=== PATIENT | male | born 1945 | race Caucasian/White ===

== ENCOUNTER 2020-02-03 10:25 | Outpatient (REF) | payer OTHER, SELFPAY ==
[2020-02-03 12:03] LABS: INTERNATIONAL NORM RATIO 2.4 (0.9-1.1); Prothrombin Time 28.9 SEC (10.8-13.0)
== END 2020-02-03 10:26 | disposition home or self-care (01) ==
LOC: HO.HMGCLR 10:25
PROVIDERS: PCP Internal Medicine; Visit Provider Internal Medicine Hematology
DX: Z95.811 Presence of heart assist device (principal)
CPT/HCPCS: 36415; 85610

== ENCOUNTER 2020-02-17 10:02 | Outpatient (REF) | payer OTHER, SELFPAY ==
[2020-02-17 11:31] LABS: INTERNATIONAL NORM RATIO 2.5 (0.9-1.1); Prothrombin Time 30.3 SEC (10.8-13.0)
== END 2020-02-17 10:03 | disposition home or self-care (01) ==
LOC: HO.HMGCLDS 10:02
PROVIDERS: PCP Internal Medicine; Visit Provider Internal Medicine Hematology
DX: Z95.811 Presence of heart assist device (principal)
CPT/HCPCS: 36415; 85610

== ENCOUNTER 2020-03-02 08:34 | Outpatient (REF) | payer OTHER, SELFPAY ==
[2020-03-02 11:15] LABS: INTERNATIONAL NORM RATIO 2.7 (0.9-1.1); Prothrombin Time 31.8 SEC (10.8-13.0)
== END 2020-03-02 08:35 | disposition home or self-care (01) ==
LOC: HO.HMGCLR 08:34
PROVIDERS: PCP Internal Medicine; Visit Provider Internal Medicine Hematology
DX: Z95.811 Presence of heart assist device (principal)
CPT/HCPCS: 36415; 85610

== ENCOUNTER 2020-03-16 09:15 | Outpatient (REF) | payer OTHER, SELFPAY ==
[2020-03-16 11:40] LABS: INTERNATIONAL NORM RATIO 2.1 (0.9-1.1); Prothrombin Time 25.5 SEC (10.8-13.0)
== END 2020-03-16 09:16 | disposition home or self-care (01) ==
LOC: HO.HMGCLNP 09:15
PROVIDERS: PCP Internal Medicine; Visit Provider Internal Medicine Hematology
DX: Z95.811 Presence of heart assist device (principal)
CPT/HCPCS: 36415; 85610

== ENCOUNTER 2020-03-30 09:58 | Outpatient (REF) | payer OTHER, SELFPAY ==
[2020-03-30 11:42] LABS: INTERNATIONAL NORM RATIO 2.8 (0.9-1.1); Prothrombin Time 33.1 SEC (10.8-13.0)
== END 2020-03-30 09:59 | disposition home or self-care (01) ==
LOC: HO.HMGCLR 09:58
PROVIDERS: PCP Internal Medicine; Visit Provider Internal Medicine Hematology
DX: Z95.811 Presence of heart assist device (principal)
CPT/HCPCS: 36415; 85610

== ENCOUNTER 2020-04-13 10:54 | Outpatient (REF) | payer OTHER, SELFPAY ==
[2020-04-13 14:25] LABS: INTERNATIONAL NORM RATIO 2.6 (0.9-1.1); Prothrombin Time 30.7 SEC (10.8-13.0)
== END 2020-04-13 10:55 | disposition home or self-care (01) ==
LOC: HO.HMGCLR 10:54
PROVIDERS: PCP Internal Medicine; Visit Provider Internal Medicine Hematology
DX: Z95.811 Presence of heart assist device (principal); Z51.81 Encounter for therapeutic drug level monitoring
CPT/HCPCS: 36415; 85610

== ENCOUNTER 2020-04-27 10:30 | Outpatient (REF) | payer OTHER, SELFPAY ==
[2020-04-27 11:40] LABS: INTERNATIONAL NORM RATIO 3.2 (0.9-1.1); Prothrombin Time 38.8 SEC (10.8-13.0)
== END 2020-04-27 10:31 | disposition home or self-care (01) ==
LOC: HO.HMGCLR 10:30
PROVIDERS: PCP Internal Medicine; Visit Provider Internal Medicine Hematology
DX: Z95.811 Presence of heart assist device (principal)
CPT/HCPCS: 36415; 85610

== ENCOUNTER 2020-05-11 11:10 | Outpatient (REF) | payer OTHER, SELFPAY ==
[2020-05-11 14:16] LABS: INTERNATIONAL NORM RATIO 3.2 (0.9-1.1); Prothrombin Time 37.9 SEC (10.8-13.0)
== END 2020-05-11 11:11 | disposition home or self-care (01) ==
LOC: HO.HMGCLR 11:10
PROVIDERS: PCP Internal Medicine; Visit Provider Internal Medicine Hematology
DX: Z95.811 Presence of heart assist device (principal)
CPT/HCPCS: 36415; 85610

== ENCOUNTER 2020-05-18 11:37 | Outpatient (REF) | payer OTHER, SELFPAY ==
[2020-05-18 14:14] LABS: INTERNATIONAL NORM RATIO 2.7 (0.9-1.1); Prothrombin Time 32.4 SEC (10.8-13.0)
== END 2020-05-18 11:38 | disposition home or self-care (01) ==
LOC: HO.HMGCLR 11:37
PROVIDERS: PCP Internal Medicine; Visit Provider Internal Medicine Hematology
DX: Z95.811 Presence of heart assist device (principal); Z79.01 Long term (current) use of anticoagulants
CPT/HCPCS: 36415; 85610

== ENCOUNTER 2020-05-25 10:48 | Outpatient (REF) | payer OTHER, SELFPAY ==
[2020-05-25 14:12] LABS: INTERNATIONAL NORM RATIO 2.5 (0.9-1.1); Prothrombin Time 29.5 SEC (10.8-13.0)
== END 2020-05-25 10:49 | disposition home or self-care (01) ==
LOC: HO.HMGCLR 10:48
PROVIDERS: PCP Internal Medicine; Visit Provider Internal Medicine Hematology
DX: Z95.811 Presence of heart assist device (principal)
CPT/HCPCS: 36415; 85610

== ENCOUNTER 2020-06-01 11:30 | Outpatient (REF) | payer OTHER, SELFPAY ==
[2020-06-01 14:35] LABS: INTERNATIONAL NORM RATIO 2.4 (0.9-1.1); Prothrombin Time 29.2 SEC (10.8-13.0)
== END 2020-06-01 11:31 | disposition home or self-care (01) ==
LOC: HO.HMGCLR 11:30
PROVIDERS: PCP Internal Medicine; Visit Provider Internal Medicine Hematology
DX: Z95.811 Presence of heart assist device (principal); Z79.01 Long term (current) use of anticoagulants
CPT/HCPCS: 36415; 85610

== ENCOUNTER 2020-06-15 10:47 | Outpatient (REF) | payer OTHER, SELFPAY ==
[2020-06-15 13:53] LABS: Hemoglobin 18.4 g/dl (14.0-18.0); Mean Corpuscular HGB Conc 32.6 g/dl (31.0-36.0); Mean Corpuscular Volume 95.1 fL (80-98); Mean Platelet Volume 10.7 fL (9.4-12.4); Platelet Count 160 X10*3/uL (160-400); Red Blood Count 5.94 X10*6/uL (4.60-5.80); Red Cell Distribution Width 14.6 % (11.0-16.0); White Blood Count 6.9 X10*3/uL (4.8-10.8)
[2020-06-15 13:58] LABS: Hematocrit 56.5 % (42-52)
[2020-06-15 14:04] LABS: INTERNATIONAL NORM RATIO 2.8 (0.9-1.1); Prothrombin Time 34.2 SEC (10.8-13.0)
[2020-06-15 14:11] LABS: Alanine Aminotransferase 33 U/L (0-40); Albumin Level 4.4 g/dL (3.5-5.0); Alkaline Phosphatase 93 U/L (39-117); Anion Gap 16 (12-20); Aspartate Amino Transferase 29 U/L (5-37); Bilirubin Direct 0.5 mg/dL (0.0-0.5); Bilirubin Total 1.4 mg/dL (0.0-1.0); Blood Urea Nitrogen 25 mg/dL (9-16); Calcium 9.2 mg/dL (8.4-10.2); Carbon Dioxide 25 mmol/L (22-29); Chloride 103 mmol/L (96-108); Cholesterol 198 mg/dL; Estimated Glomerular Filt Rate 46; Glucose Fasting 101 mg/dL (60-99); HDL Cholesterol 31 mg/dL; LDL Cholesterol Calculated 124 mg/dl; Lactate Dehydrogenase 210 U/L (118-273); Sodium 140 mmol/L (135-145); Total Protein 7.4 g/dL (6.5-8.0); Triglycerides 218 mg/dL
[2020-06-15 14:14] LABS: B Type Natriuretic Peptide 284 pg/mL (<100)
[2020-06-15 14:33] LABS: Free T4 (Free Thyroxine) 1.24 ng/dL (0.71-1.85); Thyroid Stimulating Hormone 1.33 uIU/mL (0.32-4.0)
== END 2020-06-15 10:48 | disposition home or self-care (01) ==
LOC: HO.HMGCLR 10:47
PROVIDERS: Absent Provider Nurse Practitioner Acute Care; PCP Internal Medicine; Visit Provider Internal Medicine Hematology
DX: I25.10 Atherosclerotic heart disease of native coronary artery without angina pectoris (principal); Z95.811 Presence of heart assist device
CPT/HCPCS: 36415; 80048; 80061; 80076; 83615; 83880; 84439; 84443; 85027; 85610

== ENCOUNTER 2020-06-29 09:10 | Outpatient (REF) | payer OTHER, SELFPAY ==
[2020-06-29 11:37] LABS: Prothrombin Time 36.4 SEC (10.8-13.0)
== END 2020-06-29 09:11 | disposition home or self-care (01) ==
LOC: HO.HMGCLR 09:10
PROVIDERS: Visit Provider Internal Medicine Hematology
DX: Z95.811 Presence of heart assist device (principal)
CPT/HCPCS: 36415; 85610

== ENCOUNTER 2020-07-13 11:45 | Outpatient (REF) | payer OTHER, SELFPAY ==
[2020-07-13 14:46] LABS: INTERNATIONAL NORM RATIO 2.7 (0.9-1.1); Prothrombin Time 31.9 SEC (10.8-13.0)
== END 2020-07-13 11:46 | disposition home or self-care (01) ==
LOC: HO.HMGCLR 11:45
PROVIDERS: PCP Internal Medicine; Visit Provider Internal Medicine Hematology
DX: Z95.811 Presence of heart assist device (principal)
CPT/HCPCS: 36415; 85610

== ENCOUNTER 2020-08-03 11:00 | Outpatient (REF) | payer OTHER, SELFPAY ==
[2020-08-03 14:03] LABS: INTERNATIONAL NORM RATIO 3.2 (0.9-1.1); Prothrombin Time 38.5 SEC (10.8-13.0)
== END 2020-08-03 11:01 | disposition home or self-care (01) ==
LOC: HO.HMGCLR 11:00
PROVIDERS: PCP Internal Medicine; Visit Provider Internal Medicine Hematology
DX: Z95.811 Presence of heart assist device (principal); Z79.01 Long term (current) use of anticoagulants
CPT/HCPCS: 36415; 85610

== ENCOUNTER 2020-08-10 10:23 | Outpatient (REF) | payer OTHER, SELFPAY ==
[2020-08-10 11:45] LABS: INTERNATIONAL NORM RATIO 1.9 (0.9-1.1); Prothrombin Time 22.4 SEC (10.8-13.0)
== END 2020-08-10 10:24 | disposition home or self-care (01) ==
LOC: HO.HMGCLR 10:23
PROVIDERS: PCP Internal Medicine; Visit Provider Internal Medicine Hematology
DX: Z95.811 Presence of heart assist device (principal)
CPT/HCPCS: 36415; 85610

== ENCOUNTER 2020-08-24 11:49 | Outpatient (REF) | payer OTHER, SELFPAY ==
[2020-08-24 14:05] LABS: INTERNATIONAL NORM RATIO 1.7 (0.9-1.1); Prothrombin Time 20.7 SEC (10.8-13.0)
== END 2020-08-24 11:50 | disposition home or self-care (01) ==
LOC: HO.HMGCLR 11:49
PROVIDERS: PCP Internal Medicine; Visit Provider Internal Medicine Hematology
DX: Z95.811 Presence of heart assist device (principal)
CPT/HCPCS: 36415; 85610

== ENCOUNTER 2020-08-27 11:10 | Outpatient (REF) | payer OTHER, SELFPAY ==
[2020-08-27 14:10] LABS: Prothrombin Time 23.7 SEC (10.8-13.0)
== END 2020-08-27 11:11 | disposition home or self-care (01) ==
LOC: HO.HMGCLR 11:10
PROVIDERS: PCP Internal Medicine; Visit Provider Internal Medicine Hematology
DX: Z95.811 Presence of heart assist device (principal)
CPT/HCPCS: 36415; 85610

== ENCOUNTER 2020-09-01 13:44 | Outpatient (REF) | payer OTHER, SELFPAY ==
[2020-09-01 16:58] LABS: INTERNATIONAL NORM RATIO 2.1 (0.9-1.1); Prothrombin Time 25.3 SEC (10.8-13.0)
== END 2020-09-01 13:45 | disposition home or self-care (01) ==
LOC: HO.HMGCLR 13:44
PROVIDERS: PCP Internal Medicine; Visit Provider Internal Medicine Hematology
DX: Z95.811 Presence of heart assist device (principal)
CPT/HCPCS: 36415; 85610

== ENCOUNTER 2020-09-08 11:22 | Outpatient (REF) | payer OTHER, SELFPAY ==
[2020-09-08 14:05] LABS: INTERNATIONAL NORM RATIO 1.4 (0.9-1.1); Prothrombin Time 16.2 SEC (10.8-13.0)
== END 2020-09-08 11:23 | disposition home or self-care (01) ==
LOC: HO.HMGCLR 11:22
PROVIDERS: PCP Internal Medicine; Visit Provider Internal Medicine Hematology
DX: Z95.811 Presence of heart assist device (principal)
CPT/HCPCS: 36415; 85610

== ENCOUNTER 2020-09-14 10:21 | Outpatient (REF) | payer OTHER, SELFPAY ==
[2020-09-14 11:46] LABS: INTERNATIONAL NORM RATIO 2.1 (0.9-1.1); Prothrombin Time 24.6 SEC (10.8-13.0)
== END 2020-09-14 10:22 | disposition home or self-care (01) ==
LOC: HO.HMGCLR 10:21
PROVIDERS: PCP Internal Medicine; Visit Provider Internal Medicine Hematology
DX: Z95.811 Presence of heart assist device (principal)
CPT/HCPCS: 36415; 85610

== ENCOUNTER 2020-09-21 10:12 | Outpatient (REF) | payer OTHER, SELFPAY ==
[2020-09-21 11:35] LABS: INTERNATIONAL NORM RATIO 2.2 (0.9-1.1); Prothrombin Time 25.9 SEC (10.8-13.0)
== END 2020-09-21 10:13 | disposition home or self-care (01) ==
LOC: HO.HMGCLR 10:12
PROVIDERS: Visit Provider Internal Medicine Hematology
DX: Z95.811 Presence of heart assist device (principal)
CPT/HCPCS: 36415; 85610

== ENCOUNTER 2020-09-29 11:15 | Outpatient (REF) | payer OTHER, SELFPAY ==
[2020-09-29 14:21] LABS: INTERNATIONAL NORM RATIO 1.7 (0.9-1.1); Prothrombin Time 20.8 SEC (10.8-13.0)
== END 2020-09-29 11:16 | disposition home or self-care (01) ==
LOC: HO.HMGCLR 11:15
PROVIDERS: PCP Internal Medicine; Visit Provider Internal Medicine Hematology
DX: Z95.811 Presence of heart assist device (principal)
CPT/HCPCS: 36415; 85610

== ENCOUNTER 2020-10-05 10:07 | Outpatient (REF) | payer OTHER, SELFPAY ==
[2020-10-05 11:55] LABS: B Type Natriuretic Peptide 244 pg/mL (<100)
[2020-10-05 12:05] LABS: INTERNATIONAL NORM RATIO 2.3 (0.9-1.1)
[2020-10-05 12:17] LABS: TSH reflex Free T4 0.86 uIU/mL (0.32-4.0)
[2020-10-05 12:22] LABS: Alanine Aminotransferase 17 U/L (0-40); Albumin Level 4.3 g/dL (3.5-5.0); Alkaline Phosphatase 96 U/L (39-117); Anion Gap 15 (12-20); Aspartate Amino Transferase 24 U/L (5-37); Bilirubin Direct 0.4 mg/dL (0.0-0.5); Bilirubin Total 1.3 mg/dL (0.0-1.0); Blood Urea Nitrogen 28 mg/dL (9-16); Calcium 9.3 mg/dL (8.4-10.2); Carbon Dioxide 20 mmol/L (22-29); Chloride 109 mmol/L (96-108); Estimated Glomerular Filt Rate 45; Glucose Random 105 mg/dL (60-115); Lactate Dehydrogenase 226 U/L (118-273); Potassium 4.6 mmol/L (3.3-5.1); Sodium 139 mmol/L (135-145); Total Protein 7.2 g/dL (6.5-8.0)
== END 2020-10-05 10:08 | disposition home or self-care (01) ==
LOC: HO.HMGCLDS 10:07
PROVIDERS: Internal Medicine Hematology; PCP Internal Medicine; Visit Provider Nurse Practitioner Acute Care
DX: Z95.811 Presence of heart assist device (principal)
CPT/HCPCS: 36415; 80048; 80076; 83615; 83880; 84443; 85610

== ENCOUNTER 2020-10-12 10:59 | Outpatient (REF) | payer OTHER, SELFPAY ==
[2020-10-12 14:04] LABS: INTERNATIONAL NORM RATIO 2.5 (0.9-1.1); Prothrombin Time 29.6 SEC (10.8-13.0)
== END 2020-10-12 11:00 | disposition home or self-care (01) ==
LOC: HO.HMGCLR 10:59
PROVIDERS: Visit Provider Internal Medicine Hematology
DX: Z95.811 Presence of heart assist device (principal); Z79.01 Long term (current) use of anticoagulants; Z51.81 Encounter for therapeutic drug level monitoring
CPT/HCPCS: 36415; 85610

== ENCOUNTER 2020-10-19 10:19 | Outpatient (REF) | payer OTHER, SELFPAY ==
[2020-10-19 11:43] LABS: INTERNATIONAL NORM RATIO 2.6 (0.9-1.1); Prothrombin Time 31.1 SEC (10.8-13.0)
== END 2020-10-19 10:20 | disposition home or self-care (01) ==
LOC: HO.HMGCLR 10:19
PROVIDERS: PCP Internal Medicine; Visit Provider Internal Medicine Hematology
DX: Z95.811 Presence of heart assist device (principal)
CPT/HCPCS: 36415; 85610

== ENCOUNTER 2020-10-26 10:41 | Outpatient (REF) | payer OTHER, SELFPAY ==
[2020-10-26 13:58] LABS: INTERNATIONAL NORM RATIO 2.8 (0.9-1.1); Prothrombin Time 34.1 SEC (10.8-13.0)
== END 2020-10-26 10:42 | disposition home or self-care (01) ==
LOC: HO.HMGCLR 10:41
PROVIDERS: PCP Internal Medicine; Visit Provider Internal Medicine Hematology
DX: Z95.811 Presence of heart assist device (principal)
CPT/HCPCS: 36415; 85610

== ENCOUNTER 2020-11-11 11:35 | Outpatient (REF) | payer OTHER, SELFPAY ==
[2020-11-11 13:59] LABS: INTERNATIONAL NORM RATIO 1.9 (0.9-1.1); Prothrombin Time 21.8 SEC (9.9-13.0)
== END 2020-11-11 11:36 | disposition home or self-care (01) ==
LOC: HO.HMGCLR 11:35
PROVIDERS: PCP Internal Medicine; Visit Provider Internal Medicine Hematology
DX: Z95.811 Presence of heart assist device (principal)
CPT/HCPCS: 36415; 85610

== ENCOUNTER 2020-11-16 11:00 | Outpatient (REF) | payer OTHER, SELFPAY ==
[2020-11-16 15:07] LABS: INTERNATIONAL NORM RATIO 2.9 (0.9-1.1); Prothrombin Time 34.3 SEC (9.9-13.0)
== END 2020-11-16 11:01 | disposition home or self-care (01) ==
LOC: HO.HMGCLR 11:00
PROVIDERS: PCP Internal Medicine; Visit Provider Internal Medicine Hematology
DX: Z95.811 Presence of heart assist device (principal)
CPT/HCPCS: 36415; 85610

== ENCOUNTER 2020-11-23 11:01 | Outpatient (REF) | payer OTHER, SELFPAY ==
[2020-11-23 14:06] LABS: INTERNATIONAL NORM RATIO 2.9 (0.9-1.1); Prothrombin Time 33.9 SEC (9.9-13.0)
== END 2020-11-23 11:02 | disposition home or self-care (01) ==
LOC: HO.HMGCLR 11:01
PROVIDERS: PCP Internal Medicine; Visit Provider Internal Medicine Hematology
DX: Z95.811 Presence of heart assist device (principal)
CPT/HCPCS: 36415; 85610

== ENCOUNTER 2020-11-30 11:10 | Outpatient (REF) | payer OTHER, SELFPAY ==
[2020-11-30 14:11] LABS: INTERNATIONAL NORM RATIO 4.9 (0.9-1.1); Prothrombin Time 57.9 SEC (9.9-13.0)
== END 2020-11-30 11:11 | disposition home or self-care (01) ==
LOC: HO.HMGCLR 11:10
PROVIDERS: PCP Internal Medicine; Visit Provider Internal Medicine Hematology
DX: Z95.811 Presence of heart assist device (principal)
CPT/HCPCS: 36415; 85610

== ENCOUNTER 2020-12-07 11:25 | Outpatient (REF) | payer OTHER, SELFPAY ==
[2020-12-07 14:18] LABS: INTERNATIONAL NORM RATIO 1.3 (0.9-1.1); Prothrombin Time 14.9 SEC (9.9-13.0)
== END 2020-12-07 11:26 | disposition home or self-care (01) ==
LOC: HO.HMGCLR 11:25
PROVIDERS: PCP Internal Medicine; Visit Provider Internal Medicine Hematology
DX: Z95.811 Presence of heart assist device (principal)
CPT/HCPCS: 36415; 85610

== ENCOUNTER 2020-12-14 10:12 | Outpatient (REF) | payer OTHER, SELFPAY ==
[2020-12-14 11:40] LABS: INTERNATIONAL NORM RATIO 1.7 (0.9-1.1); Prothrombin Time 19.9 SEC (9.9-13.0)
== END 2020-12-14 10:13 | disposition home or self-care (01) ==
LOC: HO.HMGCLR 10:12
PROVIDERS: PCP Internal Medicine; Visit Provider Internal Medicine Hematology
DX: Z95.811 Presence of heart assist device (principal)
CPT/HCPCS: 36415; 85610

== ENCOUNTER 2020-12-17 10:08 | Outpatient (REF) | payer OTHER, SELFPAY ==
[2020-12-17 11:28] LABS: INTERNATIONAL NORM RATIO 2.2 (0.9-1.1); Prothrombin Time 25.3 SEC (9.9-13.0)
== END 2020-12-17 10:09 | disposition home or self-care (01) ==
LOC: HO.HMGCLR 10:08
PROVIDERS: PCP Internal Medicine; Visit Provider Internal Medicine Hematology
DX: Z95.811 Presence of heart assist device (principal)
CPT/HCPCS: 36415; 85610

== ENCOUNTER 2020-12-21 10:50 | Outpatient (REF) | payer OTHER, SELFPAY ==
[2020-12-21 12:48] LABS: INTERNATIONAL NORM RATIO 2.7 (0.9-1.1); Prothrombin Time 31.3 SEC (9.9-13.0)
== END 2020-12-21 10:51 | disposition home or self-care (01) ==
LOC: HO.HMGCLR 10:50
PROVIDERS: PCP Internal Medicine; Visit Provider Internal Medicine Hematology
DX: Z95.811 Presence of heart assist device (principal)
CPT/HCPCS: 36415; 85610

== ENCOUNTER 2020-12-28 10:28 | Outpatient (REF) | payer OTHER, SELFPAY ==
[2020-12-28 14:05] LABS: INTERNATIONAL NORM RATIO 1.9 (0.9-1.1); Prothrombin Time 21.9 SEC (9.9-13.0)
== END 2020-12-28 10:29 | disposition home or self-care (01) ==
LOC: HO.HMGCLR 10:28
PROVIDERS: PCP Internal Medicine; Visit Provider Pharmacist
DX: Z95.811 Presence of heart assist device (principal)
CPT/HCPCS: 36415; 85610

== ENCOUNTER 2020-12-31 10:59 | Outpatient (REF) | payer OTHER, SELFPAY ==
[2020-12-31 14:47] LABS: INTERNATIONAL NORM RATIO 2.6 (0.9-1.1); Prothrombin Time 29.7 SEC (9.9-13.0)
== END 2020-12-31 11:00 | disposition home or self-care (01) ==
LOC: HO.HMGCLR 10:59
PROVIDERS: PCP Internal Medicine; Visit Provider Pharmacist
DX: Z95.811 Presence of heart assist device (principal)
CPT/HCPCS: 36415; 85610

== ENCOUNTER 2021-01-11 10:54 | Outpatient (REF) | payer OTHER, SELFPAY ==
[2021-01-11 14:10] LABS: INTERNATIONAL NORM RATIO 2.2 (0.9-1.1); Prothrombin Time 24.9 SEC (9.9-13.0)
== END 2021-01-11 10:55 | disposition home or self-care (01) ==
LOC: HO.HMGCLR 10:54
PROVIDERS: PCP Internal Medicine; Visit Provider Pharmacist
DX: Z95.811 Presence of heart assist device (principal)
CPT/HCPCS: 36415; 85610

== ENCOUNTER 2021-01-18 10:34 | Outpatient (REF) | payer OTHER, SELFPAY ==
[2021-01-18 11:51] LABS: Prothrombin Time 23.3 SEC (9.9-13.0)
== END 2021-01-18 10:35 | disposition home or self-care (01) ==
LOC: HO.HMGCLR 10:34
PROVIDERS: PCP Internal Medicine; Visit Provider Pharmacist
DX: Z95.811 Presence of heart assist device (principal)
CPT/HCPCS: 36415; 85610

== ENCOUNTER 2021-01-25 11:21 | Outpatient (REF) | payer OTHER, SELFPAY ==
[2021-01-25 14:11] LABS: INTERNATIONAL NORM RATIO 1.8 (0.9-1.1); Prothrombin Time 21.1 SEC (9.9-13.0)
== END 2021-01-25 11:22 | disposition home or self-care (01) ==
LOC: HO.HMGCLR 11:21
PROVIDERS: Visit Provider Pharmacist
DX: Z95.811 Presence of heart assist device (principal)
CPT/HCPCS: 36415; 85610

== ENCOUNTER 2021-01-28 10:47 | Outpatient (REF) | payer OTHER, SELFPAY ==
[2021-01-28 14:09] LABS: INTERNATIONAL NORM RATIO 2.4 (0.9-1.1); Prothrombin Time 27.7 SEC (9.9-13.0)
== END 2021-01-28 10:48 | disposition home or self-care (01) ==
LOC: HO.HMGCLR 10:47
PROVIDERS: PCP Internal Medicine; Visit Provider Pharmacist
DX: Z95.811 Presence of heart assist device (principal)
CPT/HCPCS: 36415; 85610

== ENCOUNTER 2021-02-01 10:31 | Outpatient (REF) | payer OTHER, SELFPAY ==
[2021-02-01 11:29] LABS: INTERNATIONAL NORM RATIO 2.4 (0.9-1.1); Prothrombin Time 27.8 SEC (9.9-13.0)
== END 2021-02-01 10:32 | disposition home or self-care (01) ==
LOC: HO.HMGCLR 10:31
PROVIDERS: PCP Internal Medicine; Visit Provider Pharmacist
DX: Z95.811 Presence of heart assist device (principal)
CPT/HCPCS: 36415; 85610

== ENCOUNTER 2021-02-08 14:43 | Outpatient (REF) | payer OTHER, SELFPAY ==
[2021-02-08 16:24] LABS: INTERNATIONAL NORM RATIO 2.7 (0.9-1.1); Prothrombin Time 31.9 SEC (9.9-13.0)
== END 2021-02-08 14:44 | disposition home or self-care (01) ==
LOC: HO.HMGCLR 14:43
PROVIDERS: PCP Internal Medicine; Visit Provider Pharmacist
DX: Z95.811 Presence of heart assist device (principal)
CPT/HCPCS: 36415; 85610

== ENCOUNTER 2021-02-15 10:42 | Outpatient (REF) | payer OTHER, SELFPAY ==
[2021-02-15 14:04] LABS: INTERNATIONAL NORM RATIO 2.7 (0.9-1.1); Prothrombin Time 31.7 SEC (9.9-13.0)
== END 2021-02-15 10:43 | disposition home or self-care (01) ==
LOC: HO.HMGCLR 10:42
PROVIDERS: PCP Internal Medicine; Visit Provider Pharmacist
DX: Z95.811 Presence of heart assist device (principal); Z79.01 Long term (current) use of anticoagulants
CPT/HCPCS: 36415; 85610

== ENCOUNTER 2021-02-22 10:37 | Outpatient (REF) | payer OTHER, SELFPAY ==
[2021-02-22 13:52] LABS: INTERNATIONAL NORM RATIO 2.6 (0.9-1.1); Prothrombin Time 30.2 SEC (9.9-13.0)
== END 2021-02-22 10:38 | disposition home or self-care (01) ==
LOC: HO.HMGCLR 10:37
PROVIDERS: PCP Internal Medicine; Visit Provider Pharmacist
DX: Z95.811 Presence of heart assist device (principal)
CPT/HCPCS: 36415; 85610

== ENCOUNTER 2021-03-01 11:06 | Outpatient (REF) | payer OTHER, SELFPAY ==
[2021-03-01 13:49] LABS: MANUAL DIFF FLAG NO
[2021-03-01 13:53] LABS: Basophils Absolute Auto 0.1 X10*3/uL (0.0-0.2); Basophils Percent Auto 0.9 % (0-2); Eosinophils Absolute Auto 0.1 X10*3/uL (0.0-0.4); Eosinophils Percent Auto 2.3 % (0-4); Hematocrit 47.3 % (42.0-52.0); Hemoglobin 15.2 g/dl (14.0-18.0); Imm Gran Abs Auto 0.03 X10*3/uL (0.00-0.03); Imm Gran Pct Auto 0.5 % (0.0-0.4); Lymphocytes Absolute Auto 1.1 X10*3/uL (1.2-4.9); Lymphocytes Percent Auto 18.8 % (20-40); Mean Corpuscular HGB Conc 32.1 g/dl (31.0-36.0); Mean Corpuscular Hemoglobin 29.3 pg (27.0-33.0); Mean Corpuscular Volume 91.3 fL (80.0-98.0); Mean Platelet Volume 10.5 fL (9.4-12.4); Monocytes Absolute Auto 0.6 X10*3/uL (0.1-1.2); Monocytes Percent Auto 9.6 % (2-11); Neutrophils Absolute Auto 3.87 x10*3/uL (2.0-8.3); Neutrophils Percent Auto 67.9 % (45-73); Platelet Count 138 X10*3/uL (160-400); Red Blood Count 5.18 X10*6/uL (4.60-5.80); Red Cell Distribution Width 14.8 % (11.0-16.0); White Blood Count 5.7 X10*3/uL (4.8-10.8)
[2021-03-01 13:58] LABS: INTERNATIONAL NORM RATIO 2.8 (0.9-1.1)
[2021-03-01 14:28] LABS: Alanine Aminotransferase 16 U/L (0-40); Albumin Level 4.3 g/dL (3.5-5.0); Alkaline Phosphatase 153 U/L (39-117); Anion Gap 15 (12-20); Aspartate Amino Transferase 25 U/L (5-37); Bilirubin Direct 0.4 mg/dL (0.0-0.5); Bilirubin Total 1.1 mg/dL (0.0-1.0); Blood Urea Nitrogen 23 mg/dL (9-16); Calcium 9.1 mg/dL (8.4-10.2); Carbon Dioxide 21 mmol/L (22-29); Chloride 107 mmol/L (96-108); Estimated Glomerular Filt Rate 48; Glucose Random 103 mg/dL (60-115); Lactate Dehydrogenase 198 U/L (118-273); Potassium 4.5 mmol/L (3.3-5.1); Sodium 138 mmol/L (135-145); Total Protein 7.4 g/dL (6.5-8.0)
[2021-03-01 14:34] LABS: B Type Natriuretic Peptide 224 pg/mL (<100)
== END 2021-03-01 11:07 | disposition home or self-care (01) ==
LOC: HO.HMGCLR 11:06
PROVIDERS: Absent Provider Pharmacist; PCP Internal Medicine; Visit Provider Nurse Practitioner Acute Care
DX: I50.9 Heart failure, unspecified (principal); Z95.811 Presence of heart assist device
CPT/HCPCS: 36415; 80053; 82248; 83615; 83880; 85025; 85610

== ENCOUNTER 2021-03-08 11:08 | Outpatient (REF) | payer OTHER, SELFPAY ==
[2021-03-08 14:08] LABS: MANUAL DIFF FLAG NO
[2021-03-08 14:16] LABS: Basophils Absolute Auto 0.1 X10*3/uL (0.0-0.2); Eosinophils Absolute Auto 0.1 X10*3/uL (0.0-0.4); Eosinophils Percent Auto 2.3 % (0-4); Hematocrit 48.5 % (42.0-52.0); Hemoglobin 15.5 g/dl (14.0-18.0); Imm Gran Abs Auto 0.02 X10*3/uL (0.00-0.03); Imm Gran Pct Auto 0.3 % (0.0-0.4); Lymphocytes Absolute Auto 1.9 X10*3/uL (1.2-4.9); Lymphocytes Percent Auto 30.3 % (20-40); Mean Corpuscular Volume 90.8 fL (80.0-98.0); Mean Platelet Volume 10.8 fL (9.4-12.4); Monocytes Absolute Auto 0.5 X10*3/uL (0.1-1.2); Monocytes Percent Auto 8.1 % (2-11); Neutrophils Absolute Auto 3.6 x10*3/uL (2.0-8.3); Platelet Count 157 X10*3/uL (160-400); Red Blood Count 5.34 X10*6/uL (4.60-5.80); Red Cell Distribution Width 14.6 % (11.0-16.0); White Blood Count 6.2 X10*3/uL (4.8-10.8)
[2021-03-08 14:25] LABS: INTERNATIONAL NORM RATIO 1.8 (0.9-1.1); Prothrombin Time 20.9 SEC (9.9-13.0)
[2021-03-08 14:31] LABS: Estimated Average Glucose 108 mg/dL; Hemoglobin A1c % 5.4 %
[2021-03-08 14:49] LABS: Alanine Aminotransferase 23 U/L (0-40); Albumin Level 4.5 g/dL (3.5-5.0); Alkaline Phosphatase 151 U/L (39-117); Anion Gap 16 (12-20); Aspartate Amino Transferase 28 U/L (5-37); Bilirubin Direct 0.4 mg/dL (0.0-0.5); Blood Urea Nitrogen 34 mg/dL (9-16); C Reactive Protein 0.81 mg/dL (< or = 0.50); Calcium 9.2 mg/dL (8.4-10.2); Carbon Dioxide 21 mmol/L (22-29); Chloride 106 mmol/L (96-108); Cholesterol 207 mg/dL; Estimated Glomerular Filt Rate 41; Glucose Random 132 mg/dL (60-115); Iron 74 mcg/dL (45-160); Lactate Dehydrogenase 212 U/L (118-273); Percent Iron Saturation 15 % (15-50); Potassium 4.2 mmol/L (3.3-5.1); Sodium 139 mmol/L (135-145); Total Iron Binding Capacity 482 mcg/dL (228-428); Total Protein 7.9 g/dL (6.5-8.0); Unsaturated Iron Binding 408 ug/dL
[2021-03-08 14:52] LABS: B Type Natriuretic Peptide 269 pg/mL (<100)
[2021-03-08 15:11] LABS: TSH reflex Free T4 1.17 uIU/mL (0.32-4.0)
== END 2021-03-08 11:09 | disposition home or self-care (01) ==
LOC: HO.HMGCLR 11:08
PROVIDERS: Nurse Practitioner Acute Care; PCP Internal Medicine; Visit Provider Pharmacist
DX: I50.9 Heart failure, unspecified (principal); Z95.811 Presence of heart assist device
CPT/HCPCS: 36415; 80053; 82248; 82465; 83036; 83540; 83615; 83880; 84134; 84443; 85025; 85610; 86140

== ENCOUNTER 2021-03-11 12:00 | Outpatient (REF) | payer OTHER, SELFPAY ==
[2021-03-11 14:23] LABS: Prothrombin Time 23.4 SEC (9.9-13.0)
== END 2021-03-11 12:01 | disposition home or self-care (01) ==
LOC: HO.HMGCLR 12:00
PROVIDERS: Visit Provider Pharmacist
DX: Z95.811 Presence of heart assist device (principal)
CPT/HCPCS: 36415; 85610

== ENCOUNTER 2021-03-15 10:40 | Outpatient (REF) | payer OTHER, SELFPAY ==
[2021-03-15 11:51] LABS: INTERNATIONAL NORM RATIO 1.9 (0.9-1.1); Prothrombin Time 21.4 SEC (9.9-13.0)
== END 2021-03-15 10:41 | disposition home or self-care (01) ==
LOC: HO.HMGCLDS 10:40
PROVIDERS: PCP Internal Medicine; Visit Provider Pharmacist
DX: Z95.811 Presence of heart assist device (principal)
CPT/HCPCS: 36415; 85610

== ENCOUNTER 2021-03-18 10:32 | Outpatient (REF) | payer OTHER, SELFPAY ==
[2021-03-18 11:36] LABS: MANUAL DIFF FLAG NO
[2021-03-18 11:55] LABS: Basophils Absolute Auto 0.1 X10*3/uL (0.0-0.2); Basophils Percent Auto 1.3 % (0-2); Eosinophils Absolute Auto 0.2 X10*3/uL (0.0-0.4); Hematocrit 48.1 % (42.0-52.0); Hemoglobin 15.2 g/dl (14.0-18.0); Imm Gran Abs Auto 0.03 X10*3/uL (0.00-0.03); Imm Gran Pct Auto 0.5 % (0.0-0.4); Lymphocytes Absolute Auto 1.4 X10*3/uL (1.2-4.9); Lymphocytes Percent Auto 22.3 % (20-40); Mean Corpuscular HGB Conc 31.6 g/dl (31.0-36.0); Mean Corpuscular Hemoglobin 28.6 pg (27.0-33.0); Mean Corpuscular Volume 90.4 fL (80.0-98.0); Monocytes Absolute Auto 0.5 X10*3/uL (0.1-1.2); Monocytes Percent Auto 8.1 % (2-11); Neutrophils Absolute Auto 4.2 x10*3/uL (2.0-8.3); Neutrophils Percent Auto 64.8 % (45-73); Platelet Count 137 X10*3/uL (160-400); Red Blood Count 5.32 X10*6/uL (4.60-5.80); Red Cell Distribution Width 14.3 % (11.0-16.0); White Blood Count 6.4 X10*3/uL (4.8-10.8)
[2021-03-18 12:09] LABS: INTERNATIONAL NORM RATIO 2.2 (0.9-1.1); Prothrombin Time 25.1 SEC (9.9-13.0)
[2021-03-18 12:12] LABS: Estimated Average Glucose 114 mg/dL; Hemoglobin A1c % 5.6 %
[2021-03-18 12:35] LABS: Alanine Aminotransferase 23 U/L (0-40); Albumin Level 4.3 g/dL (3.5-5.0); Alkaline Phosphatase 149 U/L (39-117); Anion Gap 18 (12-20); Aspartate Amino Transferase 27 U/L (5-37); Bilirubin Direct 0.4 mg/dL (0.0-0.5); Blood Urea Nitrogen 27 mg/dL (9-16); C Reactive Protein 0.85 mg/dL (< or = 0.50); Calcium 9.3 mg/dL (8.4-10.2); Carbon Dioxide 19 mmol/L (22-29); Chloride 107 mmol/L (96-108); Cholesterol 208 mg/dL; Estimated Glomerular Filt Rate 39; Glucose Random 131 mg/dL (60-115); Iron 81 mcg/dL (45-160); Lactate Dehydrogenase 236 U/L (118-273); Percent Iron Saturation 18 % (15-50); Sodium 140 mmol/L (135-145); Total Iron Binding Capacity 451 mcg/dL (228-428); Total Protein 7.7 g/dL (6.5-8.0); Unsaturated Iron Binding 370 ug/dL
[2021-03-18 12:57] LABS: Free T4 (Free Thyroxine) 1.16 ng/dL (0.71-1.85); Thyroid Stimulating Hormone 1.42 uIU/mL (0.32-4.0)
[2021-03-19 21:46] LABS: NT-proBNP 626 pg/mL
== END 2021-03-18 10:33 | disposition home or self-care (01) ==
LOC: HO.HMGCLR 10:32
PROVIDERS: PCP Internal Medicine; Referring Provider Nurse Practitioner Acute Care; Visit Provider Pharmacist
DX: Z95.811 Presence of heart assist device (principal)
CPT/HCPCS: 36415; 80053; 82248; 82465; 83036; 83540; 83615; 83880; 84134; 84439; 84443; 85025; 85610; 86140

== ENCOUNTER 2021-03-22 11:28 | Outpatient (REF) | payer OTHER, SELFPAY ==
[2021-03-22 14:09] LABS: INTERNATIONAL NORM RATIO 2.9 (0.9-1.1)
== END 2021-03-22 11:29 | disposition home or self-care (01) ==
LOC: HO.HMGCLR 11:28
PROVIDERS: PCP Internal Medicine; Visit Provider Pharmacist
DX: Z95.811 Presence of heart assist device (principal)
CPT/HCPCS: 36415; 85610

== ENCOUNTER 2021-03-29 11:42 | Outpatient (REF) | payer MEDICARE, SELFPAY ==
[2021-03-29 14:05] LABS: INTERNATIONAL NORM RATIO 3.2 (0.9-1.1); Prothrombin Time 37.6 SEC (9.9-13.0)
== END 2021-03-29 11:43 | disposition home or self-care (01) ==
LOC: HO.HMGCLR 11:42
PROVIDERS: PCP Internal Medicine; Visit Provider Pharmacist
DX: Z95.811 Presence of heart assist device (principal); Z79.01 Long term (current) use of anticoagulants; Z51.81 Encounter for therapeutic drug level monitoring
CPT/HCPCS: 36415; 85610

== ENCOUNTER 2021-04-05 11:04 | Outpatient (REF) | payer MEDICARE, SELFPAY ==
[2021-04-05 14:01] LABS: INTERNATIONAL NORM RATIO 2.8 (0.9-1.1); Prothrombin Time 32.4 SEC (9.9-13.0)
== END 2021-04-05 11:05 | disposition home or self-care (01) ==
LOC: HO.HMGCLR 11:04
PROVIDERS: PCP Internal Medicine; Visit Provider Pharmacist
DX: Z95.811 Presence of heart assist device (principal)
CPT/HCPCS: 36415; 85610

== ENCOUNTER 2021-04-12 11:41 | Outpatient (REF) | payer MEDICARE, SELFPAY ==
[2021-04-12 13:47] LABS: INTERNATIONAL NORM RATIO 2.4 (0.9-1.1); Prothrombin Time 27.7 SEC (9.9-13.0)
== END 2021-04-12 11:42 | disposition home or self-care (01) ==
LOC: HO.HMGCLR 11:41
PROVIDERS: PCP Internal Medicine; Visit Provider Pharmacist
DX: Z95.811 Presence of heart assist device (principal)
CPT/HCPCS: 36415; 85610

== ENCOUNTER 2021-04-19 10:17 | Outpatient (REF) | payer MEDICARE, SELFPAY ==
[2021-04-19 11:54] LABS: Prothrombin Time 23.2 SEC (9.9-13.0)
== END 2021-04-19 10:18 | disposition home or self-care (01) ==
LOC: HO.HMGCLR 10:17
PROVIDERS: PCP Internal Medicine; Visit Provider Pharmacist
DX: Z95.811 Presence of heart assist device (principal)
CPT/HCPCS: 36415; 85610

== ENCOUNTER 2021-04-26 11:23 | Outpatient (REF) | payer MEDICARE, SELFPAY ==
[2021-04-26 14:10] LABS: INTERNATIONAL NORM RATIO 2.4 (0.9-1.1); Prothrombin Time 27.7 SEC (9.9-13.0)
== END 2021-04-26 11:24 | disposition home or self-care (01) ==
LOC: HO.HMGCLR 11:23
PROVIDERS: PCP Internal Medicine; Visit Provider Pharmacist
DX: Z95.811 Presence of heart assist device (principal)
CPT/HCPCS: 36415; 85610

== ENCOUNTER 2021-05-03 10:58 | Outpatient (REF) | payer MEDICARE, SELFPAY ==
[2021-05-03 14:13] LABS: Prothrombin Time 23.5 SEC (9.9-13.0)
== END 2021-05-03 10:59 | disposition home or self-care (01) ==
LOC: HO.HMGCLDS 10:58
PROVIDERS: Visit Provider Pharmacist
DX: Z95.811 Presence of heart assist device (principal)
CPT/HCPCS: 36415; 85610

== ENCOUNTER 2021-05-10 11:20 | Outpatient (REF) | payer MEDICARE, SELFPAY ==
[2021-05-10 13:58] LABS: INTERNATIONAL NORM RATIO 2.3 (0.9-1.1); Prothrombin Time 26.3 SEC (9.9-13.0)
== END 2021-05-10 11:21 | disposition home or self-care (01) ==
LOC: HO.HMGCLR 11:20
PROVIDERS: PCP Internal Medicine; Visit Provider Pharmacist
DX: Z95.811 Presence of heart assist device (principal)
CPT/HCPCS: 36415; 85610

== ENCOUNTER 2021-05-18 11:18 | Outpatient (REF) | payer MEDICARE, SELFPAY ==
[2021-05-18 13:58] LABS: INTERNATIONAL NORM RATIO 2.7 (0.9-1.1); Prothrombin Time 31.1 SEC (9.9-13.0)
== END 2021-05-18 11:19 | disposition home or self-care (01) ==
LOC: HO.HMGCLDS 11:18
PROVIDERS: PCP Internal Medicine; Visit Provider Pharmacist
DX: Z95.811 Presence of heart assist device (principal)
CPT/HCPCS: 36415; 85610

== ENCOUNTER 2021-05-24 10:59 | Outpatient (REF) | payer MEDICARE, SELFPAY ==
[2021-05-24 14:08] LABS: INTERNATIONAL NORM RATIO 2.7 (0.9-1.1); Prothrombin Time 31.7 SEC (9.9-13.0)
== END 2021-05-24 11:00 | disposition home or self-care (01) ==
LOC: HO.HMGCLDS 10:59
PROVIDERS: PCP Internal Medicine; Visit Provider Pharmacist
DX: Z95.811 Presence of heart assist device (principal)
CPT/HCPCS: 36415; 85610

== ENCOUNTER 2021-05-31 11:30 | Outpatient (REF) | payer MEDICARE, SELFPAY ==
[2021-05-31 13:57] LABS: INTERNATIONAL NORM RATIO 2.5 (0.9-1.1); Prothrombin Time 28.6 SEC (9.9-13.0)
== END 2021-05-31 11:31 | disposition home or self-care (01) ==
LOC: HO.HMGCLR 11:30
PROVIDERS: Visit Provider Pharmacist
DX: Z95.811 Presence of heart assist device (principal)
CPT/HCPCS: 36415; 85610

== ENCOUNTER 2021-06-07 11:25 | Outpatient (REF) | payer MEDICARE, SELFPAY ==
[2021-06-07 13:52] LABS: INTERNATIONAL NORM RATIO 2.2 (0.9-1.1); Prothrombin Time 25.1 SEC (9.9-13.0)
== END 2021-06-07 11:26 | disposition home or self-care (01) ==
LOC: HO.HMGCLR 11:25
PROVIDERS: Visit Provider Pharmacist
DX: Z95.811 Presence of heart assist device (principal)
CPT/HCPCS: 36415; 85610

== ENCOUNTER 2021-06-14 11:17 | Outpatient (REF) | payer MEDICARE, SELFPAY ==
[2021-06-14 14:34] LABS: INTERNATIONAL NORM RATIO 1.8 (0.9-1.1)
== END 2021-06-14 11:18 | disposition home or self-care (01) ==
LOC: HO.HMGCLDS 11:17
PROVIDERS: Visit Provider Pharmacist
DX: Z95.811 Presence of heart assist device (principal)
CPT/HCPCS: 36415; 85610

== ENCOUNTER 2021-06-17 11:13 | Outpatient (REF) | payer MEDICARE, SELFPAY ==
[2021-06-17 14:12] LABS: INTERNATIONAL NORM RATIO 2.2 (0.9-1.1)
[2021-06-17 16:12] LABS: Prothrombin Time 25.4 SEC (9.9-13.0)
== END 2021-06-17 11:14 | disposition home or self-care (01) ==
LOC: HO.HMGCLDS 11:13
PROVIDERS: PCP Internal Medicine; Visit Provider Pharmacist
DX: Z95.811 Presence of heart assist device (principal)
CPT/HCPCS: 36415; 85610

== ENCOUNTER 2021-06-21 11:27 | Outpatient (REF) | payer MEDICARE, SELFPAY ==
[2021-06-21 13:57] LABS: INTERNATIONAL NORM RATIO 2.5 (0.9-1.1); Prothrombin Time 28.4 SEC (9.9-13.0)
== END 2021-06-21 11:28 | disposition home or self-care (01) ==
LOC: HO.HMGCLDS 11:27
PROVIDERS: Visit Provider Pharmacist
DX: Z95.811 Presence of heart assist device (principal)
CPT/HCPCS: 36415; 85610

== ENCOUNTER 2021-06-28 11:31 | Outpatient (REF) | payer MEDICARE, SELFPAY ==
[2021-06-28 14:15] LABS: INTERNATIONAL NORM RATIO 2.8 (0.9-1.1); Prothrombin Time 32.8 SEC (9.9-13.0)
== END 2021-06-28 11:32 | disposition home or self-care (01) ==
LOC: HO.HMGCLDS 11:31
PROVIDERS: PCP Internal Medicine; Visit Provider Pharmacist
DX: Z95.811 Presence of heart assist device (principal)
CPT/HCPCS: 36415; 85610

== ENCOUNTER 2021-07-05 11:38 | Outpatient (REF) | payer MEDICARE, SELFPAY ==
[2021-07-05 14:06] LABS: INTERNATIONAL NORM RATIO 2.8 (0.9-1.1); Prothrombin Time 32.7 SEC (9.9-13.0)
== END 2021-07-05 11:39 | disposition home or self-care (01) ==
LOC: HO.HMGCLR 11:38
PROVIDERS: PCP Internal Medicine; Visit Provider Internal Medicine Hematology
DX: Z95.811 Presence of heart assist device (principal)
CPT/HCPCS: 36415; 85610

== ENCOUNTER 2021-07-12 11:36 | Outpatient (REF) | payer MEDICARE, SELFPAY ==
[2021-07-12 14:00] LABS: INTERNATIONAL NORM RATIO 2.9 (0.9-1.1); Prothrombin Time 34.3 SEC (9.9-13.0)
== END 2021-07-12 11:37 | disposition home or self-care (01) ==
LOC: HO.HMGCLR 11:36
PROVIDERS: PCP Internal Medicine; Visit Provider Internal Medicine Hematology
DX: Z95.811 Presence of heart assist device (principal)
CPT/HCPCS: 36415; 85610

== ENCOUNTER 2021-07-19 11:29 | Outpatient (REF) | payer MEDICARE, SELFPAY ==
[2021-07-19 14:08] LABS: INTERNATIONAL NORM RATIO 2.7 (0.9-1.1); Prothrombin Time 31.6 SEC (9.9-13.0)
== END 2021-07-19 11:30 | disposition home or self-care (01) ==
LOC: HO.HMGCLR 11:29
PROVIDERS: Visit Provider Internal Medicine Hematology
DX: Z95.811 Presence of heart assist device (principal)
CPT/HCPCS: 36415; 85610

== ENCOUNTER 2021-07-26 11:34 | Outpatient (REF) | payer MEDICARE, SELFPAY ==
[2021-07-26 14:02] LABS: INTERNATIONAL NORM RATIO 3.4 (0.9-1.1); Prothrombin Time 39.9 SEC (9.9-13.0)
== END 2021-07-26 11:35 | disposition home or self-care (01) ==
LOC: HO.HMGCLR 11:34
PROVIDERS: PCP Internal Medicine; Visit Provider Internal Medicine Hematology
DX: Z95.811 Presence of heart assist device (principal)
CPT/HCPCS: 36415; 85610

== ENCOUNTER 2021-08-02 11:23 | Outpatient (REF) | payer MEDICARE, SELFPAY ==
[2021-08-02 13:56] LABS: INTERNATIONAL NORM RATIO 2.3 (0.9-1.1); Prothrombin Time 26.8 SEC (9.9-13.0)
== END 2021-08-02 11:24 | disposition home or self-care (01) ==
LOC: HO.HMGCLR 11:23
PROVIDERS: Visit Provider Internal Medicine Hematology
DX: Z95.811 Presence of heart assist device (principal)
CPT/HCPCS: 36415; 85610

== ENCOUNTER 2021-08-09 11:40 | Outpatient (REF) | payer MEDICARE, SELFPAY ==
[2021-08-09 14:07] LABS: INTERNATIONAL NORM RATIO 2.2 (0.9-1.1); Prothrombin Time 25.4 SEC (9.9-13.0)
== END 2021-08-09 11:41 | disposition home or self-care (01) ==
LOC: HO.HMGCLR 11:40
PROVIDERS: PCP Internal Medicine; Visit Provider Internal Medicine Hematology
DX: Z95.811 Presence of heart assist device (principal); Z79.01 Long term (current) use of anticoagulants
CPT/HCPCS: 36415; 85610

== ENCOUNTER 2021-08-18 11:06 | Outpatient (REF) | payer MEDICARE, SELFPAY ==
[2021-08-18 14:00] LABS: INTERNATIONAL NORM RATIO 2.1 (0.9-1.1)
[2021-08-18 14:06] LABS: Anion Gap 14 (12-20); Blood Urea Nitrogen 29 mg/dL (9-16); Calcium 8.9 mg/dL (8.4-10.2); Carbon Dioxide 20 mmol/L (22-29); Chloride 108 mmol/L (96-108); Estimated Glomerular Filt Rate 43; Glucose Random 114 mg/dL (60-115); Sodium 138 mmol/L (135-145)
== END 2021-08-18 11:07 | disposition home or self-care (01) ==
LOC: HO.HMGCLR 11:06
PROVIDERS: Visit Provider Internal Medicine Hematology
DX: Z95.811 Presence of heart assist device (principal)
CPT/HCPCS: 36415; 80048; 85610

== ENCOUNTER 2021-08-23 11:37 | Outpatient (REF) | payer MEDICARE, SELFPAY ==
[2021-08-23 14:13] LABS: INTERNATIONAL NORM RATIO 2.2 (0.9-1.1); Prothrombin Time 24.9 SEC (9.9-13.0)
== END 2021-08-23 11:38 | disposition home or self-care (01) ==
LOC: HO.HMGCLR 11:37
PROVIDERS: Visit Provider Internal Medicine Hematology
DX: Z95.811 Presence of heart assist device (principal)
CPT/HCPCS: 36415; 85610

== ENCOUNTER 2021-08-30 11:41 | Outpatient (REF) | payer MEDICARE, SELFPAY ==
[2021-08-30 13:54] LABS: INTERNATIONAL NORM RATIO 2.3 (0.9-1.1); Prothrombin Time 26.1 SEC (9.9-13.0)
== END 2021-08-30 11:42 | disposition home or self-care (01) ==
LOC: HO.HMGCLR 11:41
PROVIDERS: Visit Provider Internal Medicine Hematology
DX: Z95.811 Presence of heart assist device (principal); Z79.01 Long term (current) use of anticoagulants
CPT/HCPCS: 36415; 85610

== ENCOUNTER 2021-09-06 11:35 | Outpatient (REF) | payer MEDICARE, SELFPAY ==
[2021-09-06 14:10] LABS: Prothrombin Time 22.5 SEC (9.9-13.0)
== END 2021-09-06 11:36 | disposition home or self-care (01) ==
LOC: HO.HMGCLR 11:35
PROVIDERS: Visit Provider Internal Medicine Hematology
DX: Z95.811 Presence of heart assist device (principal)
CPT/HCPCS: 36415; 85610

== ENCOUNTER 2021-09-13 11:32 | Outpatient (REF) | payer MEDICARE, SELFPAY ==
[2021-09-13 14:02] LABS: INTERNATIONAL NORM RATIO 2.2 (0.9-1.1)
== END 2021-09-13 11:33 | disposition home or self-care (01) ==
LOC: HO.HMGCLR 11:32
PROVIDERS: Visit Provider Internal Medicine Hematology
DX: Z95.811 Presence of heart assist device (principal)
CPT/HCPCS: 36415; 85610

== ENCOUNTER 2021-09-20 11:15 | Outpatient (REF) | payer MEDICARE, SELFPAY | END 2021-09-20 11:16 | disposition home or self-care (01) | LOC: HO.HMGCLR 11:15 | PROVIDERS: Visit Provider Internal Medicine Hematology | DX: Z95.811 Presence of heart assist device (principal) | CPT/HCPCS: 36415; 85610 ==

== ENCOUNTER 2021-10-11 11:12 | Outpatient (REF) | payer MEDICARE, SELFPAY ==
[2021-10-11 13:56] LABS: Prothrombin Time 23.5 SEC (9.9-13.0)
== END 2021-10-11 11:13 | disposition home or self-care (01) ==
LOC: HO.HMGCLR 11:12
PROVIDERS: Visit Provider Internal Medicine Hematology
DX: Z95.811 Presence of heart assist device (principal)
CPT/HCPCS: 36415; 85610

== ENCOUNTER 2021-10-18 11:12 | Outpatient (REF) | payer MEDICARE, SELFPAY ==
[2021-10-18 14:23] LABS: Prothrombin Time 23.2 SEC (9.9-13.0)
== END 2021-10-18 11:13 | disposition home or self-care (01) ==
LOC: HO.HMGCLR 11:12
PROVIDERS: Visit Provider Internal Medicine Hematology
DX: Z95.811 Presence of heart assist device (principal)
CPT/HCPCS: 36415; 85610

== ENCOUNTER 2021-10-28 11:31 | Outpatient (REF) | payer MEDICARE, SELFPAY ==
[2021-10-28 13:54] LABS: INTERNATIONAL NORM RATIO 2.9 (0.9-1.1); Prothrombin Time 34.3 SEC (10.0-13.1)
== END 2021-10-28 11:32 | disposition home or self-care (01) ==
LOC: HO.HMGCLR 11:31
PROVIDERS: Visit Provider Internal Medicine Hematology
DX: Z95.811 Presence of heart assist device (principal)
CPT/HCPCS: 36415; 85610

== ENCOUNTER 2021-11-11 07:41 | Outpatient (REF) | payer MEDICARE, SELFPAY ==
[2021-11-11 11:26] LABS: INTERNATIONAL NORM RATIO 2.3 (0.9-1.1); Prothrombin Time 26.9 SEC (10.0-13.1)
== END 2021-11-11 07:42 | disposition home or self-care (01) ==
LOC: HO.HMGCLDS 07:41
PROVIDERS: Visit Provider Internal Medicine Hematology
DX: Z95.811 Presence of heart assist device (principal)
CPT/HCPCS: 36415; 85610

== ENCOUNTER 2021-11-15 12:21 | Outpatient (REF) | payer MEDICARE, SELFPAY ==
[2021-11-15 14:07] LABS: INTERNATIONAL NORM RATIO 2.8 (0.9-1.1); Prothrombin Time 33.3 SEC (10.0-13.1)
== END 2021-11-15 12:22 | disposition home or self-care (01) ==
LOC: HO.HMGCLR 12:21
PROVIDERS: Visit Provider Internal Medicine Hematology
DX: Z95.811 Presence of heart assist device (principal)
CPT/HCPCS: 36415; 85610

== ENCOUNTER 2021-11-22 11:12 | Outpatient (REF) | payer MEDICARE, SELFPAY ==
[2021-11-22 13:50] LABS: INTERNATIONAL NORM RATIO 2.2 (0.9-1.1); Prothrombin Time 26.1 SEC (10.0-13.1)
== END 2021-11-22 11:13 | disposition home or self-care (01) ==
LOC: HO.HMGCLR 11:12
PROVIDERS: Visit Provider Internal Medicine Hematology
DX: Z95.811 Presence of heart assist device (principal)
CPT/HCPCS: 36415; 85610

== ENCOUNTER 2021-11-29 11:24 | Outpatient (REF) | payer MEDICARE, SELFPAY ==
[2021-11-29 15:12] LABS: INTERNATIONAL NORM RATIO 2.1 (0.9-1.1); Prothrombin Time 24.5 SEC (10.0-13.1)
== END 2021-11-29 11:25 | disposition home or self-care (01) ==
LOC: HO.LABR 11:24
PROVIDERS: PCP Internal Medicine; Visit Provider Internal Medicine Hematology
DX: Z95.811 Presence of heart assist device (principal)
CPT/HCPCS: 36415; 85610

== ENCOUNTER 2021-12-06 11:59 | Outpatient (REF) | payer MEDICARE, SELFPAY ==
[2021-12-06 14:06] LABS: INTERNATIONAL NORM RATIO 1.6 (0.9-1.1); Prothrombin Time 18.8 SEC (10.0-13.1)
== END 2021-12-06 12:00 | disposition home or self-care (01) ==
LOC: HO.HMGCLDS 11:59
PROVIDERS: Visit Provider Internal Medicine Hematology
DX: Z95.811 Presence of heart assist device (principal)
CPT/HCPCS: 36415; 85610

== ENCOUNTER 2021-12-13 11:35 | Outpatient (REF) | payer MEDICARE, SELFPAY ==
[2021-12-13 13:54] LABS: INTERNATIONAL NORM RATIO 3.8 (0.9-1.1); Prothrombin Time 46.4 SEC (10.0-13.1)
== END 2021-12-13 11:36 | disposition home or self-care (01) ==
LOC: HO.LABR 11:35
PROVIDERS: PCP Internal Medicine; Visit Provider Internal Medicine Hematology
DX: Z95.811 Presence of heart assist device (principal)
CPT/HCPCS: 36415; 85610

== ENCOUNTER 2021-12-20 11:37 | Outpatient (REF) | payer MEDICARE, SELFPAY ==
[2021-12-20 14:08] LABS: INTERNATIONAL NORM RATIO 3.2 (0.9-1.1); Prothrombin Time 38.5 SEC (10.0-13.1)
== END 2021-12-20 11:38 | disposition home or self-care (01) ==
LOC: HO.HMGCLR 11:37
PROVIDERS: Visit Provider Internal Medicine Hematology
DX: Z95.811 Presence of heart assist device (principal)
CPT/HCPCS: 36415; 85610

== ENCOUNTER 2021-12-27 11:22 | Outpatient (REF) | payer MEDICARE, SELFPAY ==
[2021-12-27 14:18] LABS: INTERNATIONAL NORM RATIO 2.5 (0.9-1.1); Prothrombin Time 29.2 SEC (10.0-13.1)
== END 2021-12-27 11:23 | disposition home or self-care (01) ==
LOC: HO.HMGCLDS 11:22
PROVIDERS: Visit Provider Internal Medicine Hematology
DX: Z95.811 Presence of heart assist device (principal)
CPT/HCPCS: 36415; 85610

== ENCOUNTER 2022-01-04 11:30 | Outpatient (REF) | payer MEDICARE, SELFPAY ==
[2022-01-04 14:34] LABS: INTERNATIONAL NORM RATIO 2.7 (0.9-1.1); Prothrombin Time 32.7 SEC (10.0-13.1)
== END 2022-01-04 11:31 | disposition home or self-care (01) ==
LOC: HO.HMGCLR 11:30
PROVIDERS: PCP Internal Medicine; Visit Provider Internal Medicine Hematology
DX: Z95.811 Presence of heart assist device (principal)
CPT/HCPCS: 36415; 85610

== ENCOUNTER 2022-01-10 11:25 | Outpatient (REF) | payer MEDICARE, SELFPAY ==
[2022-01-10 14:15] LABS: INTERNATIONAL NORM RATIO 2.9 (0.9-1.1); Prothrombin Time 34.8 SEC (10.0-13.1)
== END 2022-01-10 11:26 | disposition home or self-care (01) ==
LOC: HO.LABR 11:25
PROVIDERS: PCP Internal Medicine; Visit Provider Internal Medicine Hematology
DX: Z95.811 Presence of heart assist device (principal)
CPT/HCPCS: 36415; 85610

== ENCOUNTER 2022-01-17 11:33 | Outpatient (REF) | payer MEDICARE, SELFPAY ==
[2022-01-17 14:21] LABS: INTERNATIONAL NORM RATIO 2.5 (0.9-1.1); Prothrombin Time 29.9 SEC (10.0-13.1)
== END 2022-01-17 11:34 | disposition home or self-care (01) ==
LOC: HO.LABR 11:33
PROVIDERS: PCP Internal Medicine; Visit Provider Internal Medicine Hematology
DX: Z95.811 Presence of heart assist device (principal)
CPT/HCPCS: 36415; 85610

== ENCOUNTER 2022-01-20 14:52 | Outpatient (REF) | payer MEDICARE, SELFPAY | END 2022-01-20 14:53 | disposition home or self-care (01) | LOC: HO.HMGCLNP 14:52 | DX: R30.0 Dysuria (principal) | CPT/HCPCS: 87086; 87088; 87186 ==

== ENCOUNTER 2022-01-22 13:09 | Outpatient (REF) | payer MEDICARE, SELFPAY ==
--- NOTE | ~2022-01-22 | XR_ITS ---
EXAMINATION: XR CHEST CLINICAL INFORMATION: Shortness of breath COMPARISON: None TECHNIQUE: 2 views of the chest were obtained. FINDINGS: The cardiac silhouette is enlarged. There are post-CABG changes. There is a left subclavian pacemaker leads projecting over the right atrium right ventricle and coronary sinus. There is a ventricular assist device projecting over the cardiac apex. The lungs are clear. There is blunting at the costophrenic angles suggestive of small pleural effusions. Bony structures are unremarkable. XR/XR chest 2V IMPRESSION: Enlarged cardiac silhouette. No evidence of pulmonary edema. Small bilateral pleural effusions.
== END 2022-01-22 13:10 | disposition home or self-care (01) ==
LOC: HO.HMGCX 13:09
PROVIDERS: PCP Internal Medicine; Visit Provider Internal Medicine
DX: R06.02 Shortness of breath (principal)
CPT/HCPCS: 71046

== ENCOUNTER 2022-01-24 11:24 | Outpatient (REF) | payer MEDICARE, SELFPAY ==
[2022-01-24 14:09] LABS: INTERNATIONAL NORM RATIO 2.8 (0.9-1.1); Prothrombin Time 33.6 SEC (10.0-13.1)
== END 2022-01-24 11:25 | disposition home or self-care (01) ==
LOC: HO.LABR 11:24
PROVIDERS: PCP Internal Medicine; Visit Provider Internal Medicine Hematology
DX: Z95.811 Presence of heart assist device (principal)
CPT/HCPCS: 36415; 85610

== ENCOUNTER 2022-01-31 11:38 | Outpatient (REF) | payer MEDICARE, SELFPAY ==
[2022-01-31 14:26] LABS: INTERNATIONAL NORM RATIO 3.2 (0.9-1.1); Prothrombin Time 38.7 SEC (10.0-13.1)
[2022-01-31 16:33] LABS: MANUAL DIFF FLAG NO
[2022-01-31 16:44] LABS: Basophils Absolute Auto 0.1 X10*3/uL (0.0-0.2); Basophils Percent Auto 2.1 % (0-2); Eosinophils Absolute Auto 0.2 X10*3/uL (0.0-0.4); Eosinophils Percent Auto 2.9 % (0-4); Hematocrit 37.7 % (42.0-52.0); Hemoglobin 10.3 g/dl (14.0-18.0); Imm Gran Abs Auto 0.02 X10*3/uL (0.00-0.03); Imm Gran Pct Auto 0.3 % (0.0-0.4); Lymphocytes Absolute Auto 1.1 X10*3/uL (1.2-4.9); Lymphocytes Percent Auto 18.8 % (20-40); Mean Corpuscular HGB Conc 27.3 g/dl (31.0-36.0); Mean Corpuscular Hemoglobin 20.4 pg (27.0-33.0); Mean Corpuscular Volume 74.7 fL (80.0-98.0); Mean Platelet Volume 10.6 fL (9.4-12.4); Monocytes Absolute Auto 0.6 X10*3/uL (0.1-1.2); NRBC Pct Auto 0.5 /100WBC (0.0-0.2); Neutrophils Absolute Auto 3.8 x10*3/uL (2.0-8.3); Neutrophils Percent Auto 64.9 % (45-73); Platelet Count 250 X10*3/uL (160-400); Red Blood Count 5.05 X10*6/uL (4.60-5.80); Red Cell Distribution Width 19.4 % (11.0-16.0); White Blood Count 5.8 X10*3/uL (4.8-10.8)
[2022-01-31 17:07] LABS: Alanine Aminotransferase 18 U/L (0-40); Albumin Level 4.2 g/dL (3.5-5.0); Alkaline Phosphatase 136 U/L (39-117); Anion Gap 15 (12-20); Aspartate Amino Transferase 22 U/L (5-37); Bilirubin Total 1.2 mg/dL (0.0-1.0); Blood Urea Nitrogen 22 mg/dL (9-16); Calcium 9.3 mg/dL (8.4-10.2); Carbon Dioxide 22 mmol/L (22-29); Chloride 108 mmol/L (96-108); Estimated Glomerular Filt Rate 42; Glucose Random 101 mg/dL (60-115); Potassium 4.4 mmol/L (3.3-5.1); Sodium 141 mmol/L (135-145); Total Protein 7.1 g/dL (6.5-8.0)
[2022-01-31 17:20] LABS: Erythrocyte Sedimentation Rate 3 MM/HR (0-15)
[2022-01-31 18:12] LABS: Digoxin 1.4 ng/mL (0.8-2.0)
== END 2022-01-31 11:39 | disposition home or self-care (01) ==
LOC: HO.HMGCLR 11:38
PROVIDERS: Absent Provider Nurse Practitioner Family; PCP Internal Medicine; Visit Provider Internal Medicine Hematology
DX: Z95.811 Presence of heart assist device (principal); A49.01 Methicillin susceptible Staphylococcus aureus infection, unspecified site
CPT/HCPCS: 36415; 80053; 80162; 83735; 85025; 85610; 85652; 86140

== ENCOUNTER 2022-02-07 10:09 | Outpatient (REF) | payer MEDICARE, SELFPAY ==
[2022-02-07 11:28] LABS: INTERNATIONAL NORM RATIO 2.7 (0.9-1.1); Prothrombin Time 32.4 SEC (10.0-13.1)
== END 2022-02-07 10:10 | disposition home or self-care (01) ==
LOC: HO.LABR 10:09
PROVIDERS: PCP Internal Medicine; Visit Provider Internal Medicine Hematology
DX: Z95.811 Presence of heart assist device (principal)
CPT/HCPCS: 36415; 85610

== ENCOUNTER 2022-02-14 11:30 | Outpatient (REF) | payer MEDICARE, SELFPAY ==
[2022-02-14 14:05] LABS: Prothrombin Time 49.1 SEC (10.0-13.1)
== END 2022-02-14 11:31 | disposition home or self-care (01) ==
LOC: HO.LABR 11:30
PROVIDERS: PCP Internal Medicine; Visit Provider Internal Medicine Hematology
DX: Z95.811 Presence of heart assist device (principal)
CPT/HCPCS: 36415; 85610

== ENCOUNTER → 2022-02-15 08:08 | Outpatient (BNV) | payer MEDICARE, SELFPAY | PROVIDERS: PCP Internal Medicine; Referring Provider Internal Medicine; Visit Provider Internal Medicine Medical Oncology | DX: D50.9 Iron deficiency anemia, unspecified (principal) | CPT/HCPCS: 99204; 99213 ==

== ENCOUNTER 2022-03-07 11:21 | Outpatient (REF) | payer MEDICARE, SELFPAY ==
[2022-03-07 14:14] LABS: Prothrombin Time 24.1 SEC (10.0-13.1)
== END 2022-03-07 11:22 | disposition home or self-care (01) ==
LOC: HO.LABR 11:21
PROVIDERS: PCP Internal Medicine; Visit Provider Internal Medicine Hematology
DX: Z95.811 Presence of heart assist device (principal)
CPT/HCPCS: 36415; 85610

== ENCOUNTER 2022-03-11 12:47 | Outpatient (REF) | payer MEDICARE, SELFPAY | END 2022-03-11 12:48 | disposition home or self-care (01) | LOC: HO.MDS 12:47 | PROVIDERS: Visit Provider Internal Medicine Medical Oncology | DX: D50.9 Iron deficiency anemia, unspecified (principal) | CPT/HCPCS: 96365; J1756 ==

== ENCOUNTER 2022-03-14 11:36 | Outpatient (REF) | payer MEDICARE, SELFPAY ==
[2022-03-14 14:10] LABS: INTERNATIONAL NORM RATIO 2.7 (0.9-1.1); Prothrombin Time 32.6 SEC (10.0-13.1)
[2022-03-14 14:36] LABS: Anion Gap 18 (12-20); Blood Urea Nitrogen 26 mg/dL (9-16); Calcium 9.4 mg/dL (8.4-10.2); Carbon Dioxide 22 mmol/L (22-29); Chloride 105 mmol/L (96-108); Estimated Glomerular Filt Rate 42; Glucose Random 107 mg/dL (60-115); Potassium 4.6 mmol/L (3.3-5.1); Sodium 140 mmol/L (135-145)
== END 2022-03-14 11:37 | disposition home or self-care (01) ==
LOC: HO.HMGCLDS 11:36
PROVIDERS: Absent Provider Internal Medicine Hematology; PCP Internal Medicine; Visit Provider Nurse Practitioner Family
DX: I50.22 Chronic systolic (congestive) heart failure (principal); Z95.811 Presence of heart assist device
CPT/HCPCS: 36415; 80048; 85610

== ENCOUNTER 2022-03-18 10:16 | Outpatient (REF) | payer MEDICARE, SELFPAY ==
--- NOTE | ~2022-03-18 | US_ITS ---
EXAMINATION: US ABDOMEN COMPLETE CLINICAL INFORMATION: Elevated LFTs. Anemia. COMPARISON: None TECHNIQUE: Real-time imaging of the abdominal viscera. FINDINGS: PANCREAS: Normal. ABDOMINAL AORTA: The visualized proximal, mid and distal segments are normal in caliber. INFERIOR VENA CAVA: Visualized portions are normal. LIVER: Normal. The liver is normal in size. The liver contour is normal. Parenchymal echogenicity is normal. No focal hepatic lesion. There is no intrahepatic biliary duct dilatation seen. GALLBLADDER: Surgically absent. COMMON BILE DUCT: Normal in caliber measuring 0.4 cm in diameter. RIGHT KIDNEY: There is increased renal cortical echotexture and renal cortical thinning. No hydronephrosis. No renal calculi or focal parenchymal lesions. The kidney measures 9.8 cm in maximum dimension. LEFT KIDNEY: There is increased renal cortical echotexture and renal cortical thinning. No hydronephrosis or renal calculi. The kidney measures 10.8 cm in maximum dimension. At the upper pole, a 1.0 cm in maximal diameter anechoic, simple cyst is seen. At the interpolar aspect, a 1.4 cm in maximal diameter anechoic, simple cyst is seen. SPLEEN: Normal. The spleen measures 10.1 cm in maximum dimension. FREE FLUID: None. US/US abdomen complete IMPRESSION: 1. Unremarkable ultrasound appearance of the liver. 2. The gallbladder surgically absent. 3. There is increased bilateral renal cortical echotexture and renal cortical thinning, which can be associated with medical renal disease. 4. Benign, simple left renal cysts are seen, for which no imaging follow-up is recommended.
== END 2022-03-18 10:17 | disposition home or self-care (01) ==
LOC: HO.HMGCX 10:16
PROVIDERS: PCP Internal Medicine; Visit Provider Internal Medicine Medical Oncology
DX: R79.89 Other specified abnormal findings of blood chemistry (principal); D64.9 Anemia, unspecified
CPT/HCPCS: 76700

== ENCOUNTER 2022-03-18 11:38 | Outpatient (REF) | payer MEDICARE, SELFPAY | END 2022-03-18 11:39 | disposition home or self-care (01) | LOC: HO.MDS 11:38 | PROVIDERS: Visit Provider Internal Medicine Medical Oncology | DX: D50.9 Iron deficiency anemia, unspecified (principal) | CPT/HCPCS: 96365; J1756 ==

== ENCOUNTER 2022-03-21 11:28 | Outpatient (REF) | payer MEDICARE, SELFPAY ==
[2022-03-21 14:19] LABS: Anion Gap 13 (12-20); Blood Urea Nitrogen 18 mg/dL (9-16); Calcium 9.2 mg/dL (8.4-10.2); Carbon Dioxide 23 mmol/L (22-29); Chloride 109 mmol/L (96-108); Estimated Glomerular Filt Rate 54; Glucose Random 117 mg/dL (60-115); Potassium 4.4 mmol/L (3.3-5.1); Sodium 141 mmol/L (135-145)
[2022-03-21 14:58] LABS: INTERNATIONAL NORM RATIO 2.9 (0.9-1.1); Prothrombin Time 34.8 SEC (10.0-13.1)
== END 2022-03-21 11:29 | disposition home or self-care (01) ==
LOC: HO.HMGCLR 11:28
PROVIDERS: Absent Provider Nurse Practitioner Family; PCP Internal Medicine; Visit Provider Internal Medicine Hematology
DX: I50.22 Chronic systolic (congestive) heart failure (principal); Z95.811 Presence of heart assist device
CPT/HCPCS: 36415; 80048; 85610

== ENCOUNTER 2022-03-23 11:03 | Outpatient (REF) | payer MEDICARE, SELFPAY | END 2022-03-23 11:04 | disposition home or self-care (01) | LOC: HO.MDS 11:03 | PROVIDERS: Visit Provider Internal Medicine Medical Oncology | DX: D50.9 Iron deficiency anemia, unspecified (principal) | CPT/HCPCS: 96365; J1756 ==

== ENCOUNTER 2022-03-28 10:43 | Outpatient (REF) | payer MEDICARE, SELFPAY ==
[2022-03-28 14:16] LABS: INTERNATIONAL NORM RATIO 3.2 (0.9-1.1)
== END 2022-03-28 10:44 | disposition home or self-care (01) ==
LOC: HO.LABR 10:43
PROVIDERS: PCP Internal Medicine; Visit Provider Internal Medicine Hematology
DX: Z95.811 Presence of heart assist device (principal); Z79.01 Long term (current) use of anticoagulants
CPT/HCPCS: 36415; 85610

== ENCOUNTER 2022-03-31 08:33 | Outpatient (REF) | payer MEDICARE, SELFPAY | END 2022-03-31 08:34 | disposition home or self-care (01) | LOC: HO.MDS 08:33 | PROVIDERS: Visit Provider Internal Medicine Medical Oncology | DX: D50.9 Iron deficiency anemia, unspecified (principal) | CPT/HCPCS: 96365; J1756 ==

== ENCOUNTER 2022-04-04 11:56 | Outpatient (REF) | payer MEDICARE, SELFPAY ==
[2022-04-04 14:07] LABS: INTERNATIONAL NORM RATIO 3.7 (0.9-1.1); Prothrombin Time 45.1 SEC (10.0-13.1)
== END 2022-04-04 11:57 | disposition home or self-care (01) ==
LOC: HO.LABR 11:56
PROVIDERS: PCP Internal Medicine; Visit Provider Internal Medicine Hematology
DX: Z95.811 Presence of heart assist device (principal)
CPT/HCPCS: 36415; 85610

== ENCOUNTER 2022-04-06 11:13 | Outpatient (REF) | payer MEDICARE, SELFPAY | END 2022-04-06 11:14 | disposition home or self-care (01) | LOC: HO.MDS 11:13 | PROVIDERS: Visit Provider Internal Medicine Medical Oncology | DX: D50.9 Iron deficiency anemia, unspecified (principal) | CPT/HCPCS: 96365; J1756 ==

== ENCOUNTER 2022-08-24 11:17 | Outpatient (REF) | payer MEDICARE, SELFPAY ==
[2022-08-24 14:06] LABS: INTERNATIONAL NORM RATIO 2.5 (0.9-1.1); Prothrombin Time 29.2 SEC (10.0-13.1)
== END 2022-08-24 11:18 | disposition home or self-care (01) ==
LOC: HO.HMGCLR 11:17
PROVIDERS: PCP Internal Medicine; Visit Provider Internal Medicine Hematology
DX: Z95.811 Presence of heart assist device (principal)
CPT/HCPCS: 36415; 85610

== ENCOUNTER 2022-08-30 11:18 | Outpatient (REF) | payer MEDICARE, SELFPAY ==
[2022-08-30 14:18] LABS: INTERNATIONAL NORM RATIO 2.9 (0.9-1.1); Prothrombin Time 34.4 SEC (10.0-13.1)
== END 2022-08-30 11:19 | disposition home or self-care (01) ==
LOC: HO.HMGCLR 11:18
PROVIDERS: PCP Internal Medicine; Visit Provider Internal Medicine Hematology
DX: Z95.811 Presence of heart assist device (principal)
CPT/HCPCS: 36415; 85610

== ENCOUNTER 2022-09-01 11:43 | Outpatient (REF) | payer MEDICARE, SELFPAY ==
--- NOTE | ~2022-09-01 | XR_ITS ---
EXAMINATION: XR CHEST CLINICAL INFORMATION: Shortness of breath. COMPARISON: Chest x-ray 01/22/2022. TECHNIQUE: Two views of the chest were obtained. FINDINGS: Left-sided subclavian AICD/pacemaker with leads in the right atrium, coronary sinus, and right ventricle. Median sternotomy. LVAD. The cardiomediastinal silhouette is stable. There are central vascular congestion without overt edema. No consolidation. No pleural effusion. Mild degenerative changes in the spine. XR/XR chest 2V IMPRESSION: Mild central vascular congestion without overt edema. No consolidation or effusion.
== END 2022-09-01 11:44 | disposition home or self-care (01) ==
LOC: HO.XRAY 11:43
PROVIDERS: Visit Provider Internal Medicine Medical Oncology
DX: R06.02 Shortness of breath (principal)
CPT/HCPCS: 71046

== ENCOUNTER 2022-09-06 11:08 | Outpatient (REF) | payer MEDICARE, SELFPAY ==
[2022-09-06 14:35] LABS: Prothrombin Time 23.3 SEC (10.0-13.1)
== END 2022-09-06 11:09 | disposition home or self-care (01) ==
LOC: HO.HMGCLR 11:08
PROVIDERS: PCP Internal Medicine; Visit Provider Internal Medicine Hematology
DX: Z95.811 Presence of heart assist device (principal)
CPT/HCPCS: 36415; 85610

== ENCOUNTER 2022-09-09 13:26 | Outpatient (REF) | payer MEDICARE, SELFPAY | END 2022-09-09 13:27 | disposition home or self-care (01) | LOC: HO.MDS 13:26 | PROVIDERS: Visit Provider Internal Medicine Medical Oncology | DX: D50.9 Iron deficiency anemia, unspecified (principal) | CPT/HCPCS: 96365; J1756 ==

== ENCOUNTER 2022-09-13 11:18 | Outpatient (REF) | payer MEDICARE, SELFPAY ==
[2022-09-13 14:33] LABS: INTERNATIONAL NORM RATIO 2.2 (0.9-1.1); Prothrombin Time 26.4 SEC (10.0-13.1)
== END 2022-09-13 11:19 | disposition home or self-care (01) ==
LOC: HO.HMGCLR 11:18
PROVIDERS: PCP Internal Medicine; Visit Provider Internal Medicine Hematology
DX: Z95.811 Presence of heart assist device (principal)
CPT/HCPCS: 36415; 85610

== ENCOUNTER 2022-09-16 11:56 | Outpatient (REF) | payer MEDICARE, SELFPAY | END 2022-09-16 11:57 | disposition home or self-care (01) | LOC: HO.MDS 11:56 | PROVIDERS: Visit Provider Internal Medicine | DX: D50.9 Iron deficiency anemia, unspecified (principal) | CPT/HCPCS: 96365; J1756 ==

== ENCOUNTER 2022-09-20 11:36 | Outpatient (REF) | payer MEDICARE, SELFPAY ==
[2022-09-20 14:18] LABS: INTERNATIONAL NORM RATIO 2.5 (0.9-1.1); Prothrombin Time 29.9 SEC (10.0-13.1)
== END 2022-09-20 11:37 | disposition home or self-care (01) ==
LOC: HO.HMGCLR 11:36
PROVIDERS: PCP Internal Medicine; Visit Provider Internal Medicine Hematology
DX: Z95.811 Presence of heart assist device (principal)
CPT/HCPCS: 36415; 85610

== ENCOUNTER 2022-09-23 11:25 | Outpatient (REF) | payer MEDICARE, SELFPAY | END 2022-09-23 11:26 | disposition home or self-care (01) | LOC: HO.MDS 11:25 | PROVIDERS: Visit Provider Internal Medicine | DX: D50.9 Iron deficiency anemia, unspecified (principal) | CPT/HCPCS: 96365; J1756 ==

== ENCOUNTER 2022-09-27 09:19 | Outpatient (REF) | payer MEDICARE, SELFPAY ==
[2022-09-27 11:37] LABS: INTERNATIONAL NORM RATIO 2.5 (0.9-1.1); Prothrombin Time 29.9 SEC (10.0-13.1)
== END 2022-09-27 09:20 | disposition home or self-care (01) ==
LOC: HO.HMGCLR 09:19
PROVIDERS: PCP Internal Medicine; Visit Provider Internal Medicine Hematology
DX: Z95.811 Presence of heart assist device (principal)
CPT/HCPCS: 36415; 85610

== ENCOUNTER 2022-09-27 10:02 | Outpatient (REF) | payer MEDICARE, SELFPAY ==
[2022-09-27 10:39] LABS: MANUAL DIFF FLAG NO
[2022-09-27 10:40] LABS: Basophils Absolute Auto 0.1 X10*3/uL (0.0-0.2); Basophils Percent Auto 1.4 % (0-2); Eosinophils Absolute Auto 0.2 X10*3/uL (0.0-0.4); Eosinophils Percent Auto 2.8 % (0-4); Hematocrit 38.7 % (42.0-52.0); Hemoglobin 10.9 g/dl (14.0-18.0); Imm Gran Abs Auto 0.03 X10*3/uL (0.00-0.03); Imm Gran Pct Auto 0.5 % (0.0-0.4); Lymphocytes Absolute Auto 1.1 X10*3/uL (1.2-4.9); Lymphocytes Percent Auto 18.3 % (20-40); Mean Corpuscular HGB Conc 28.2 g/dl (31.0-36.0); Mean Corpuscular Hemoglobin 21.7 pg (27.0-33.0); Mean Corpuscular Volume 76.9 fL (80.0-98.0); Mean Platelet Volume 9.7 fL (9.4-12.4); Monocytes Absolute Auto 0.6 X10*3/uL (0.1-1.2); Monocytes Percent Auto 9.8 % (2-11); Neutrophils Absolute Auto 3.9 x10*3/uL (2.0-8.3); Neutrophils Percent Auto 67.2 % (45-73); Platelet Count 176 X10*3/uL (160-400); Red Blood Count 5.03 X10*6/uL (4.60-5.80); Red Cell Distribution Width 26.1 % (11.0-16.0); White Blood Count 5.8 X10*3/uL (4.8-10.8)
[2022-09-27 11:21] LABS: Ferritin 150 ng/mL (20-250)
[2022-09-27 11:28] LABS: Blood Urea Nitrogen 24 mg/dL (9-16); Estimated Glomerular Filt Rate 55
== END 2022-09-27 10:03 | disposition home or self-care (01) ==
LOC: HO.MDS 10:02
PROVIDERS: Visit Provider Internal Medicine
DX: D50.9 Iron deficiency anemia, unspecified (principal)
CPT/HCPCS: 36415; 82565; 82728; 84520; 85025; 96365; J1756

== ENCOUNTER 2022-09-28 11:23 | Outpatient (REF) | payer MEDICARE, SELFPAY ==
--- NOTE | ~2022-09-28 | CT_ITS ---
EXAMINATION: CT ABDOMEN AND PELVIS WITH CONTRAST CLINICAL INFORMATION: Incisional hernia COMPARISON: Previous abdominal ultrasound March 2022 TECHNIQUE: Multidetector volumetric images were obtained from the superior aspect of the liver through the pubic symphysis following administration 85 mL of Omnipaque 350 intravenous contrast. Sagittal and coronal reformatted images were obtained on the technologist's workstation. Oral contrast: Yes This CT examination was performed using dose optimization techniques as appropriate, variously including the following: *Automated exposure control *Adjustment of mA and/or kV according to patient size (this includes techniques or standardized protocols for targeted exams where dose is matched to indication/reason for exam; i.e. extremities or head) *Use of iterative reconstruction technique DLP: 394 mGy-cm FINDINGS: LUNG BASES: Enlarged heart. LV assist device. Dual chamber pacemaker AICD leads. Small bilateral pleural effusions, right greater than left. LIVER, GALLBLADDER, AND BILIARY TREE: Prominent intrahepatic IVC and hepatic veins likely representing right heart compromise. Liver is otherwise normal. The gallbladder has been removed. PANCREAS: Unremarkable. SPLEEN: Unremarkable. ADRENAL GLANDS: Unremarkable. KIDNEYS AND URETERS: There is bilateral renal cortical thinning. There are bilateral small renal cysts. No imaging follow-up recommended. BLADDER: Unremarkable. GASTROINTESTINAL TRACT: Constipation. Diverticulosis of the colon. No evidence of diverticulitis. Slightly dilated loops of small bowel near the ventral hernia. No caliber change to suggest mechanical obstruction. Small and large bowel is otherwise normal. Normal appendix. Normal stomach. Trace ascites. ABDOMINAL WALL: Broad-based midline ventral hernia containing small bowel. No evidence of obstruction. LYMPH NODES: Normal. VASCULAR: Atherosclerotic disease. No aneurysm. PELVIC VISCERA: Unremarkable. OSSEOUS STRUCTURES: Degenerative changes of the spine. CT/CT abdomen pelvis w IV con IMPRESSION: Large midline broad-based ventral hernia containing small bowel. This has a wide neck without evidence of obstruction. Diverticulosis of the colon. No evidence of diverticulitis. Mild constipation. Fleischner guidelines were followed.
[2022-09-28] MEDS: Barium Sulfate Oral (Vanilla) 450 ML ORAL.SUSP 900 ML PO (15:32)
[2022-09-28] MEDS: iohexoL 350 MG/ML 100 ML INFUS..BTL 85 ML IV (15:32)
== END 2022-09-28 11:24 | disposition home or self-care (01) ==
LOC: HO.CT 11:23
PROVIDERS: PCP Internal Medicine; Visit Provider Internal Medicine
DX: K43.2 Incisional hernia without obstruction or gangrene (principal)
CPT/HCPCS: 74177; Q9967

== ENCOUNTER 2022-10-04 11:48 | Outpatient (REF) | payer MEDICARE, SELFPAY ==
[2022-10-04 14:56] LABS: INTERNATIONAL NORM RATIO 2.6 (0.9-1.1); Prothrombin Time 30.5 SEC (10.0-13.1)
== END 2022-10-04 11:49 | disposition home or self-care (01) ==
LOC: HO.HMGCLDS 11:48
PROVIDERS: PCP Internal Medicine; Visit Provider Internal Medicine Hematology
DX: Z95.811 Presence of heart assist device (principal)
CPT/HCPCS: 36415; 85610

== ENCOUNTER 2022-10-07 11:45 | Outpatient (REF) | payer MEDICARE, SELFPAY | END 2022-10-07 11:46 | disposition home or self-care (01) | LOC: HO.MDS 11:45 | PROVIDERS: Visit Provider Internal Medicine | DX: D50.9 Iron deficiency anemia, unspecified (principal) | CPT/HCPCS: 96365; J1756 ==

== ENCOUNTER 2022-10-11 10:44 | Outpatient (REF) | payer MEDICARE, SELFPAY ==
[2022-10-11 14:42] LABS: Blood Urea Nitrogen 25 mg/dL (9-16); Estimated Glomerular Filt Rate 52; INTERNATIONAL NORM RATIO 2.2 (0.9-1.1); Prothrombin Time 26.3 SEC (10.0-13.1)
== END 2022-10-11 10:45 | disposition home or self-care (01) ==
LOC: HO.HMGCLR 10:44
PROVIDERS: PCP Internal Medicine; Visit Provider Internal Medicine Hematology
DX: K43.2 Incisional hernia without obstruction or gangrene (principal); Z95.811 Presence of heart assist device
CPT/HCPCS: 36415; 82565; 84520; 85610

== ENCOUNTER 2022-10-14 11:01 | Outpatient (REF) | payer MEDICARE, SELFPAY | END 2022-10-14 11:02 | disposition home or self-care (01) | LOC: HO.MDS 11:01 | PROVIDERS: Visit Provider Internal Medicine | DX: D50.9 Iron deficiency anemia, unspecified (principal) | CPT/HCPCS: 96365; J1756 ==

== ENCOUNTER 2022-10-18 11:17 | Outpatient (REF) | payer MEDICARE, SELFPAY ==
[2022-10-18 15:27] LABS: INTERNATIONAL NORM RATIO 2.5 (0.9-1.1); Prothrombin Time 30.4 SEC (10.0-13.1)
== END 2022-10-18 11:18 | disposition home or self-care (01) ==
LOC: HO.HMGCLR 11:17
PROVIDERS: PCP Internal Medicine; Visit Provider Internal Medicine Hematology
DX: Z95.811 Presence of heart assist device (principal)
CPT/HCPCS: 36415; 85610

== ENCOUNTER 2022-10-21 10:58 | Outpatient (REF) | payer MEDICARE, SELFPAY | END 2022-10-21 10:59 | disposition home or self-care (01) | LOC: HO.MDS 10:58 | PROVIDERS: Visit Provider Internal Medicine | DX: D50.9 Iron deficiency anemia, unspecified (principal) | CPT/HCPCS: 96365; J1756 ==

== ENCOUNTER 2022-10-25 11:07 | Outpatient (REF) | payer MEDICARE, SELFPAY ==
[2022-10-25 14:32] LABS: INTERNATIONAL NORM RATIO 2.2 (0.9-1.1); Prothrombin Time 25.7 SEC (10.0-13.1)
== END 2022-10-25 11:08 | disposition home or self-care (01) ==
LOC: HO.HMGCLR 11:07
PROVIDERS: Visit Provider Internal Medicine Hematology
DX: Z95.811 Presence of heart assist device (principal)
CPT/HCPCS: 36415; 85610

== ENCOUNTER 2022-10-28 11:01 | Outpatient (REF) | payer MEDICARE, SELFPAY ==
[2022-10-28 11:48] LABS: MANUAL DIFF FLAG NO
[2022-10-28 11:50] LABS: Basophils Absolute Auto 0.1 X10*3/uL (0.0-0.2); Basophils Percent Auto 1.3 % (0-2); Eosinophils Absolute Auto 0.1 X10*3/uL (0.0-0.4); Eosinophils Percent Auto 2.3 % (0-4); Hematocrit 40.9 % (42.0-52.0); Hemoglobin 12.4 g/dl (14.0-18.0); Imm Gran Abs Auto 0.02 X10*3/uL (0.00-0.03); Imm Gran Pct Auto 0.4 % (0.0-0.4); Lymphocytes Absolute Auto 0.9 X10*3/uL (1.2-4.9); Lymphocytes Percent Auto 18.9 % (20-40); Mean Corpuscular HGB Conc 30.3 g/dl (31.0-36.0); Mean Corpuscular Hemoglobin 25.4 pg (27.0-33.0); Mean Corpuscular Volume 83.8 fL (80.0-98.0); Mean Platelet Volume 9.8 fL (9.4-12.4); Monocytes Absolute Auto 0.4 X10*3/uL (0.1-1.2); Monocytes Percent Auto 8.6 % (2-11); Neutrophils Absolute Auto 3.3 x10*3/uL (2.0-8.3); Neutrophils Percent Auto 68.5 % (45-73); Platelet Count 144 X10*3/uL (160-400); Red Blood Count 4.88 X10*6/uL (4.60-5.80); Red Cell Distribution Width 29.1 % (11.0-16.0); White Blood Count 4.8 X10*3/uL (4.8-10.8)
[2022-10-28 12:23] LABS: Ferritin 203 ng/mL (20-250)
== END 2022-10-28 11:02 | disposition home or self-care (01) ==
LOC: HO.MDS 11:01
PROVIDERS: Visit Provider Internal Medicine
DX: D50.9 Iron deficiency anemia, unspecified (principal)
CPT/HCPCS: 36415; 82728; 85025; 96365; J1756

== ENCOUNTER 2022-11-02 11:36 | Outpatient (REF) | payer MEDICARE, SELFPAY | END 2022-11-02 11:37 | disposition home or self-care (01) | LOC: HO.HMGCLR 11:36 | PROVIDERS: PCP Internal Medicine; Visit Provider Internal Medicine Hematology | DX: Z95.811 Presence of heart assist device (principal) | CPT/HCPCS: 36415; 85610 ==

== ENCOUNTER 2022-11-08 12:16 | Outpatient (REF) | payer MEDICARE, SELFPAY ==
[2022-11-08 13:24] LABS: INTERNATIONAL NORM RATIO 1.8 (0.9-1.1); Prothrombin Time 20.8 SEC (10.0-13.1)
== END 2022-11-08 12:17 | disposition home or self-care (01) ==
LOC: HO.HMGCLR 12:16
PROVIDERS: PCP Internal Medicine; Visit Provider Internal Medicine Hematology
DX: Z95.811 Presence of heart assist device (principal)
CPT/HCPCS: 36415; 85610

== ENCOUNTER 2022-11-15 10:58 | Outpatient (REF) | payer MEDICARE, SELFPAY ==
[2022-11-15 14:03] LABS: INTERNATIONAL NORM RATIO 2.7 (0.9-1.1); Prothrombin Time 32.9 SEC (10.0-13.1)
== END 2022-11-15 10:59 | disposition home or self-care (01) ==
LOC: HO.HMGCLR 10:58
PROVIDERS: PCP Internal Medicine; Visit Provider Internal Medicine Hematology
DX: Z95.811 Presence of heart assist device (principal)
CPT/HCPCS: 36415; 85610

== ENCOUNTER 2022-11-22 11:17 | Outpatient (REF) | payer MEDICARE, SELFPAY ==
[2022-11-22 13:13] LABS: INTERNATIONAL NORM RATIO 2.4 (0.9-1.1); Prothrombin Time 28.8 SEC (11.1-13.3)
== END 2022-11-22 11:18 | disposition home or self-care (01) ==
LOC: HO.HMGCLR 11:17
PROVIDERS: Visit Provider Internal Medicine Hematology
DX: Z95.811 Presence of heart assist device (principal)
CPT/HCPCS: 36415; 85610

== ENCOUNTER 2022-11-29 11:30 | Outpatient (REF) | payer MEDICARE, SELFPAY ==
[2022-11-29 13:57] LABS: INTERNATIONAL NORM RATIO 2.4 (0.9-1.1); Prothrombin Time 29.3 SEC (11.1-13.3)
== END 2022-11-29 11:31 | disposition home or self-care (01) ==
LOC: HO.HMGCLR 11:30
PROVIDERS: PCP Internal Medicine; Visit Provider Internal Medicine Hematology
DX: Z95.811 Presence of heart assist device (principal)
CPT/HCPCS: 36415; 85610

== ENCOUNTER 2022-12-06 11:07 | Outpatient (REF) | payer MEDICARE, SELFPAY ==
[2022-12-06 14:04] LABS: INTERNATIONAL NORM RATIO 2.5 (0.9-1.1)
== END 2022-12-06 11:08 | disposition home or self-care (01) ==
LOC: HO.HMGCLR 11:07
PROVIDERS: PCP Internal Medicine; Visit Provider Internal Medicine Hematology
DX: Z95.811 Presence of heart assist device (principal)
CPT/HCPCS: 36415; 85610

== ENCOUNTER 2022-12-13 12:15 | Outpatient (REF) | payer MEDICARE, SELFPAY ==
[2022-12-13 16:23] LABS: INTERNATIONAL NORM RATIO 2.7 (0.9-1.1); Prothrombin Time 32.4 SEC (11.1-13.3)
== END 2022-12-13 12:16 | disposition home or self-care (01) ==
LOC: HO.HMGCLR 12:15
PROVIDERS: PCP Internal Medicine; Visit Provider Internal Medicine Hematology
DX: Z95.811 Presence of heart assist device (principal)
CPT/HCPCS: 36415; 85610

== ENCOUNTER 2022-12-20 11:32 | Outpatient (REF) | payer MEDICARE, SELFPAY ==
[2022-12-20 13:42] LABS: INTERNATIONAL NORM RATIO 3.2 (0.9-1.1); Prothrombin Time 39.5 SEC (11.1-13.3)
== END 2022-12-20 11:33 | disposition home or self-care (01) ==
LOC: HO.HMGCLR 11:32
PROVIDERS: PCP Internal Medicine; Visit Provider Internal Medicine Hematology
DX: Z95.811 Presence of heart assist device (principal)
CPT/HCPCS: 36415; 85610

== ENCOUNTER 2022-12-27 12:04 | Outpatient (REF) | payer MEDICARE, SELFPAY ==
[2022-12-27 13:55] LABS: INTERNATIONAL NORM RATIO 2.8 (0.9-1.1); Prothrombin Time 34.5 SEC (11.1-13.3)
== END 2022-12-27 12:05 | disposition home or self-care (01) ==
LOC: HO.HMGCLR 12:04
PROVIDERS: PCP Internal Medicine; Visit Provider Internal Medicine Hematology
DX: Z95.811 Presence of heart assist device (principal)
CPT/HCPCS: 36415; 85610

== ENCOUNTER 2023-01-03 11:35 | Outpatient (REF) | payer MEDICARE, SELFPAY ==
[2023-01-03 13:41] LABS: INTERNATIONAL NORM RATIO 3.1 (0.9-1.1)
== END 2023-01-03 11:36 | disposition home or self-care (01) ==
LOC: HO.HMGCLR 11:35
PROVIDERS: Visit Provider Internal Medicine Hematology
DX: Z95.811 Presence of heart assist device (principal)
CPT/HCPCS: 36415; 85610

== ENCOUNTER 2023-01-10 11:23 | Outpatient (REF) | payer MEDICARE, SELFPAY ==
[2023-01-10 13:57] LABS: INTERNATIONAL NORM RATIO 3.2 (0.9-1.1)
== END 2023-01-10 11:24 | disposition home or self-care (01) ==
LOC: HO.HMGCLR 11:23
PROVIDERS: PCP Internal Medicine; Visit Provider Internal Medicine Hematology
DX: Z95.811 Presence of heart assist device (principal)
CPT/HCPCS: 36415; 85610

== ENCOUNTER 2023-01-17 10:27 | Outpatient (REF) | payer MEDICARE, SELFPAY ==
[2023-01-17 13:44] LABS: INTERNATIONAL NORM RATIO 2.6 (0.9-1.1); Prothrombin Time 31.8 SEC (11.1-13.3)
== END 2023-01-17 10:28 | disposition home or self-care (01) ==
LOC: HO.HMGCLR 10:27
PROVIDERS: PCP Internal Medicine; Visit Provider Internal Medicine Hematology
DX: Z95.811 Presence of heart assist device (principal)
CPT/HCPCS: 36415; 85610

== ENCOUNTER 2023-01-24 11:02 | Outpatient (REF) | payer MEDICARE, SELFPAY ==
[2023-01-24 13:31] LABS: INTERNATIONAL NORM RATIO 2.2 (0.9-1.1)
== END 2023-01-24 11:03 | disposition home or self-care (01) ==
LOC: HO.HMGCLR 11:02
PROVIDERS: PCP Internal Medicine; Visit Provider Internal Medicine Hematology
DX: Z95.811 Presence of heart assist device (principal)
CPT/HCPCS: 36415; 85610

== ENCOUNTER 2023-01-31 10:47 | Outpatient (REF) | payer MEDICARE, SELFPAY ==
[2023-01-31 14:53] LABS: INTERNATIONAL NORM RATIO 2.4 (0.9-1.1); Prothrombin Time 29.2 SEC (11.1-13.3)
== END 2023-01-31 10:48 | disposition home or self-care (01) ==
LOC: HO.HMGCLR 10:47
PROVIDERS: PCP Internal Medicine; Visit Provider Internal Medicine Hematology
DX: Z95.811 Presence of heart assist device (principal)
CPT/HCPCS: 36415; 85610

== ENCOUNTER 2023-02-07 10:45 | Outpatient (REF) | payer MEDICARE, SELFPAY | END 2023-02-07 10:46 | disposition home or self-care (01) | LOC: HO.HMGCLR 10:45 | PROVIDERS: PCP Internal Medicine; Visit Provider Internal Medicine Hematology | DX: Z95.811 Presence of heart assist device (principal) | CPT/HCPCS: 36415; 85610 ==

== ENCOUNTER 2023-02-21 11:46 | Outpatient (REF) | payer MEDICARE, SELFPAY ==
[2023-02-21 13:49] LABS: INTERNATIONAL NORM RATIO 2.6 (0.9-1.1); Prothrombin Time 32.2 SEC (11.1-13.3)
== END 2023-02-21 11:47 | disposition home or self-care (01) ==
LOC: HO.HMGCLR 11:46
PROVIDERS: PCP Internal Medicine; Visit Provider Internal Medicine Hematology
DX: Z95.811 Presence of heart assist device (principal)
CPT/HCPCS: 36415; 85610

== ENCOUNTER 2023-02-28 10:21 | Outpatient (REF) | payer MEDICARE, SELFPAY ==
[2023-02-28 13:53] LABS: INTERNATIONAL NORM RATIO 3.1 (0.9-1.1)
== END 2023-02-28 10:22 | disposition home or self-care (01) ==
LOC: HO.HMGCLR 10:21
PROVIDERS: PCP Internal Medicine; Visit Provider Internal Medicine Hematology
DX: Z95.811 Presence of heart assist device (principal)
CPT/HCPCS: 36415; 85610

== ENCOUNTER 2023-03-07 10:30 | Outpatient (REF) | payer MEDICARE, SELFPAY ==
[2023-03-07 13:40] LABS: INTERNATIONAL NORM RATIO 2.7 (0.9-1.1); Prothrombin Time 32.5 SEC (11.1-13.3)
== END 2023-03-07 10:31 | disposition home or self-care (01) ==
LOC: HO.HMGCLR 10:30
PROVIDERS: PCP Internal Medicine; Visit Provider Internal Medicine Hematology
DX: Z95.811 Presence of heart assist device (principal)
CPT/HCPCS: 36415; 85610

== ENCOUNTER 2023-03-14 11:58 | Outpatient (REF) | payer MEDICARE, SELFPAY ==
[2023-03-14 13:49] LABS: INTERNATIONAL NORM RATIO 3.3 (0.9-1.1)
[2023-03-14 13:54] LABS: Prothrombin Time 39.9 SEC (11.1-13.3)
[2023-03-14 15:56] LABS: MANUAL DIFF FLAG NO
[2023-03-14 16:21] LABS: Basophils Absolute Auto 0.1 X10*3/uL (0.0-0.2); Basophils Percent Auto 1.2 % (0-2); Eosinophils Absolute Auto 0.3 X10*3/uL (0.0-0.4); Eosinophils Percent Auto 4.1 % (0-4); Hematocrit 49.9 % (42.0-52.0); Hemoglobin 16.4 g/dl (14.0-18.0); Imm Gran Abs Auto 0.03 X10*3/uL (0.00-0.03); Imm Gran Pct Auto 0.4 % (0.0-0.4); Lymphocytes Absolute Auto 1.7 X10*3/uL (1.2-4.9); Lymphocytes Percent Auto 23.9 % (20-40); Mean Corpuscular HGB Conc 32.9 g/dl (31.0-36.0); Mean Corpuscular Hemoglobin 30.1 pg (27.0-33.0); Mean Corpuscular Volume 91.6 fL (80.0-98.0); Mean Platelet Volume 11.5 fL (9.4-12.4); Monocytes Absolute Auto 0.6 X10*3/uL (0.1-1.2); Monocytes Percent Auto 8.1 % (2-11); Neutrophils Absolute Auto 4.5 x10*3/uL (2.0-8.3); Neutrophils Percent Auto 62.3 % (45-73); Platelet Count 165 X10*3/uL (160-400); Red Blood Count 5.45 X10*6/uL (4.60-5.80); Red Cell Distribution Width 15.5 % (11.0-16.0); White Blood Count 7.3 X10*3/uL (4.8-10.8)
[2023-03-14 16:31] LABS: Alanine Aminotransferase 34 U/L (0-40); Albumin Level 4.1 g/dL (3.5-5.0); Alkaline Phosphatase 246 U/L (39-117); Anion Gap 16 (12-20); Aspartate Amino Transferase 57 U/L (5-37); Bilirubin Total 0.8 mg/dL (0.0-1.0); Blood Urea Nitrogen 37 mg/dL (9-16); Calcium 9.8 mg/dL (8.4-10.2); Carbon Dioxide 25 mmol/L (22-29); Chloride 102 mmol/L (96-108); Estimated Glomerular Filt Rate 41; Glucose Random 95 mg/dL (60-115); Potassium 4.7 mmol/L (3.3-5.1); Sodium 138 mmol/L (135-145); Total Protein 8.5 g/dL (6.5-8.0)
== END 2023-03-14 11:59 | disposition home or self-care (01) ==
LOC: HO.HMGCLR 11:58
PROVIDERS: Absent Provider Nurse Practitioner Family; PCP Internal Medicine; Visit Provider Internal Medicine Hematology
DX: Z95.811 Presence of heart assist device (principal)
CPT/HCPCS: 36415; 80053; 85025; 85610

== ENCOUNTER 2023-03-21 11:01 | Outpatient (REF) | payer MEDICARE, SELFPAY ==
[2023-03-21 13:33] LABS: INTERNATIONAL NORM RATIO 1.6 (0.9-1.1); Prothrombin Time 19.8 SEC (11.1-13.3)
== END 2023-03-21 11:02 | disposition home or self-care (01) ==
LOC: HO.HMGCLR 11:01
PROVIDERS: PCP Internal Medicine; Visit Provider Internal Medicine Hematology
DX: Z95.811 Presence of heart assist device (principal)
CPT/HCPCS: 36415; 85610

== ENCOUNTER 2023-03-28 11:11 | Outpatient (REF) | payer MEDICARE, SELFPAY ==
[2023-03-28 13:54] LABS: INTERNATIONAL NORM RATIO 1.8 (0.9-1.1); Prothrombin Time 21.4 SEC (11.1-13.3)
== END 2023-03-28 11:12 | disposition home or self-care (01) ==
LOC: HO.HMGCLR 11:11
PROVIDERS: PCP Internal Medicine; Visit Provider Internal Medicine Hematology
DX: Z95.811 Presence of heart assist device (principal)
CPT/HCPCS: 36415; 85610

== ENCOUNTER 2023-04-04 10:59 | Outpatient (REF) | payer MEDICARE, SELFPAY ==
[2023-04-04 13:32] LABS: INTERNATIONAL NORM RATIO 1.8 (0.9-1.1); Prothrombin Time 21.3 SEC (11.1-13.3)
== END 2023-04-04 11:00 | disposition home or self-care (01) ==
LOC: HO.HMGCLR 10:59
PROVIDERS: PCP Internal Medicine; Visit Provider Internal Medicine Hematology
DX: Z95.811 Presence of heart assist device (principal)
CPT/HCPCS: 36415; 85610

== ENCOUNTER 2023-04-11 11:36 | Outpatient (REF) | payer MEDICARE, SELFPAY ==
[2023-04-11 13:59] LABS: INTERNATIONAL NORM RATIO 2.1 (0.9-1.1); Prothrombin Time 25.4 SEC (11.1-13.3)
== END 2023-04-11 11:37 | disposition home or self-care (01) ==
LOC: HO.HMGCLR 11:36
PROVIDERS: PCP Internal Medicine; Visit Provider Internal Medicine Hematology
DX: Z95.811 Presence of heart assist device (principal)
CPT/HCPCS: 36415; 85610

== ENCOUNTER 2023-04-18 10:51 | Outpatient (REF) | payer MEDICARE, SELFPAY ==
[2023-04-18 13:36] LABS: INTERNATIONAL NORM RATIO 2.4 (0.9-1.1); Prothrombin Time 29.8 SEC (11.1-13.3)
== END 2023-04-18 10:52 | disposition home or self-care (01) ==
LOC: HO.HMGCLR 10:51
PROVIDERS: PCP Internal Medicine; Visit Provider Internal Medicine Hematology
DX: Z95.811 Presence of heart assist device (principal)
CPT/HCPCS: 36415; 85610

== ENCOUNTER 2023-04-25 12:09 | Outpatient (REF) | payer MEDICARE, SELFPAY ==
[2023-04-25 13:20] LABS: INTERNATIONAL NORM RATIO 2.1 (0.9-1.1); Prothrombin Time 25.7 SEC (11.1-13.3)
== END 2023-04-25 12:10 | disposition home or self-care (01) ==
LOC: HO.HMGCLR 12:09
PROVIDERS: PCP Internal Medicine; Visit Provider Internal Medicine Hematology
DX: Z95.811 Presence of heart assist device (principal)
CPT/HCPCS: 36415; 85610

== ENCOUNTER 2023-05-02 11:21 | Outpatient (REF) | payer MEDICARE, SELFPAY ==
[2023-05-02 13:30] LABS: INTERNATIONAL NORM RATIO 1.8 (0.9-1.1); Prothrombin Time 22.3 SEC (11.1-13.3)
== END 2023-05-02 11:22 | disposition home or self-care (01) ==
LOC: HO.HMGCLR 11:21
PROVIDERS: PCP Internal Medicine; Visit Provider Internal Medicine Hematology
DX: Z95.811 Presence of heart assist device (principal)
CPT/HCPCS: 36415; 85610

== ENCOUNTER 2023-05-09 10:56 | Outpatient (REF) | payer MEDICARE, SELFPAY ==
[2023-05-09 13:14] LABS: INTERNATIONAL NORM RATIO 2.8 (0.9-1.1); Prothrombin Time 34.1 SEC (11.1-13.3)
== END 2023-05-09 10:57 | disposition home or self-care (01) ==
LOC: HO.HMGCLR 10:56
PROVIDERS: PCP Internal Medicine; Visit Provider Internal Medicine Hematology
DX: Z95.811 Presence of heart assist device (principal)
CPT/HCPCS: 36415; 85610

== ENCOUNTER 2023-05-16 11:19 | Outpatient (REF) | payer MEDICARE, SELFPAY ==
[2023-05-16 13:45] LABS: INTERNATIONAL NORM RATIO 2.8 (0.9-1.1); Prothrombin Time 33.8 SEC (11.1-13.3)
== END 2023-05-16 11:20 | disposition home or self-care (01) ==
LOC: HO.HMGCLR 11:19
PROVIDERS: Visit Provider Internal Medicine Hematology
DX: Z95.811 Presence of heart assist device (principal)
CPT/HCPCS: 36415; 85610

== ENCOUNTER 2023-05-23 11:55 | Outpatient (REF) | payer MEDICARE, SELFPAY ==
[2023-05-23 13:58] LABS: INTERNATIONAL NORM RATIO 3.9 (0.9-1.1)
== END 2023-05-23 11:56 | disposition home or self-care (01) ==
LOC: HO.HMGCLR 11:55
PROVIDERS: PCP Internal Medicine; Visit Provider Internal Medicine Hematology
DX: Z95.811 Presence of heart assist device (principal)
CPT/HCPCS: 36415; 85610

== ENCOUNTER 2023-05-30 10:50 | Outpatient (REF) | payer MEDICARE, SELFPAY ==
[2023-05-30 13:47] LABS: INTERNATIONAL NORM RATIO 2.5 (0.9-1.1); Prothrombin Time 30.2 SEC (11.1-13.3)
== END 2023-05-30 10:51 | disposition home or self-care (01) ==
LOC: HO.HMGCLR 10:50
PROVIDERS: PCP Internal Medicine; Visit Provider Internal Medicine Hematology
DX: Z95.811 Presence of heart assist device (principal)
CPT/HCPCS: 36415; 85610

== ENCOUNTER 2023-06-21 13:19 | Outpatient (REF) | payer MEDICARE, SELFPAY ==
[2023-06-21 16:15] LABS: INTERNATIONAL NORM RATIO 3.9 (0.9-1.1)
== END 2023-06-21 13:20 | disposition home or self-care (01) ==
LOC: HO.HMGCLR 13:19
PROVIDERS: PCP Internal Medicine; Visit Provider Internal Medicine Hematology
DX: Z95.811 Presence of heart assist device (principal)
CPT/HCPCS: 36415; 85610

== ENCOUNTER → 2023-06-23 23:59 | Outpatient (BNV) | payer MEDICARE, SELFPAY | PROVIDERS: PCP Internal Medicine; Visit Provider Internal Medicine | DX: E78.5 Hyperlipidemia, unspecified (principal); R55 Syncope and collapse; N39.0 Urinary tract infection, site not specified | CPT/HCPCS: G0180 ==

== ENCOUNTER 2023-06-27 10:56 | Outpatient (REF) | payer MEDICARE, SELFPAY ==
[2023-06-27 13:44] LABS: INTERNATIONAL NORM RATIO 3.1 (0.9-1.1); Prothrombin Time 37.4 SEC (11.1-13.3)
== END 2023-06-27 10:57 | disposition home or self-care (01) ==
LOC: HO.HMGCLR 10:56
PROVIDERS: PCP Internal Medicine; Visit Provider Internal Medicine Hematology
DX: Z95.811 Presence of heart assist device (principal)
CPT/HCPCS: 36415; 85610

== ENCOUNTER 2023-06-28 09:07 | Outpatient (AMB) | payer MEDICARE, SELFPAY ==
--- NOTE | 2023-06-28 09:49 | A.OFFPC_ITS ---
Vital Signs 06/28/23 09:50 Height 5 ft 10 in Weight 151 lb BMI 21.7 BP 102/60 Blood Pressure Location Lt brachial Position Sitting Pulse 66 Pulse Source Pulse Oximeter Pulse Oximetry (%) 97 Oxygen Delivery Method Room Air Intake Visit Reasons: [facility] HD[facility]/Fall and syncope Intake Note: Pt is here today for Hospital follow up visit Allergies oxycodone Adverse Reaction (Verified 06/28/23 09:53) Hallucinations Tobacco use date assessed: 09/27/22 Fall risk assessment: 2 + Falls in past year Last assessed Fall Risk: 06/28/23 Dental Screening Dental Screen Date: 06/28/23 Did you have a dental visit in the last 12 months?: Yes Did you have a dental problem in the last 6 months where you did not have access to dental care?: No Was dental information given to patient?: Patient has dentist HPI [facility]/Fall and syncope HPI Details Pt presents for hospitalization at [facility] for frequent falls and poor balance. Neuro and cardiac workup was negative Patient has been getting home physical therapy. He was started on midodrine. He complains of feeling tired and lost over 10 lb while in the hospital. AFib is controlled on amiodarone and he is anticoagulated on warfarin. [facility] Medical History Bowel obstruction Dysuria Annual physical exam A-fib BPH (benign prostatic hyperplasia) CKD (chronic kidney disease), stage III Ischemic cardiomyopathy CHF (congestive heart failure) HTN (hypertension) Hearing loss SOB (shortness of breath) Surgical History Hx of CABG Family History Other No family history of cancer Social History Household Members: Spouse and Family Housing: House Are you a primary reproductive healthcare assistant to a significant other at home: No Do you presently have visiting nurse or other home services: No Patient Tobacco Use Status: Never used Tobacco e-Cigarette/Vaping Use: Never Used Second Hand Smoke Exposure: No service: Yes Current occupational status: retired Cognitive needs: No Hearing needs: Yes Vision needs: Yes Questionnaire PHQ-9 Over the last 2 weeks, how often have you been bothered by any of the following problems? 1. Little interest or pleasure in doing things: not at all 2. Feeling down, depressed, or hopeless: not at all 3. Trouble falling or staying asleep, or sleeping too much: not at all 4. Feeling tired or having little energy: not at all 5. Poor appetite or overeating: not at all 6. Feeling bad about yourself - or that you are a failure or have let yourself or your family down: not at all 7. Trouble concentrating on things, such as reading the newspaper or watching television: not at all 8. Moving or speaking so slowly that other people could have noticed. Or the opposite - being so fidgety or restless that you have been moving around a lot more than usual: not at all 9. Thoughts that you would be better off or of hurting yourself in some way: not at all Total score: 0 Depression Screening Interpretation: Negative Depression Screening Done: Yes Source: Developed by Drs. Live Ashby, Yane Brand, Chuck Doran and colleagues, with an educational shawn from [employer]. Thrive Questionnaire Date Thrive assessed: 06/28/23 I am a: Patient What is your living situation today?: I have a steady place to live Within the past 12 months, did the food you bought not last and you didn't have the money to get more?: Never true Within the past 12 months, did you worry whether your food would run out before you got money to buy more?: Never true Do you have trouble paying for medicines?: No Do you have trouble getting transportation to medical appointments?: No Do you have trouble paying your heating and electricity bill?: No Do you have trouble taking care of your child, family member or friend?: No Do you have trouble with day-to-day activities such as bathing, preparing meals, shopping, managing finances, etc.?: No Are you currently unemployed and looking for a job?: No Are you interested in more education?: No Please select the resources that you would like help with: None Currently or been in a relationship where the following occur: no concerns reported THRIVE Score: 0 AUDIT C Alcohol Use Questionnaire (AUDIT-C) 1. How often do you have a drink containing alcohol?: Never 3. How often do you have six or more drinks on one occasion?: Never Total Score: 0 KY-7 AMB Questionnaire KY-7 Date KY - 7 assessed: 06/28/23 Feeling nervous, anxious, or on edge: 0 = Not at all Not being able to stop or control worryin = Not at all Worrying too much about different things: 0 = Not at all Trouble relaxin = Not at all Being so restless that it is hard to sit still: 0 = Not at all Becoming easily annoyed or irritable: 0 = Not at all Feeling afraid as if something awful might happen: 0 = Not at all Total KY-7 score (0-4 normal; 5-9 mild; 10-14 moderate; 15-21 severe): 0 Source: Developed by Drs. Live Ashby, Yane Brand, Chuck Doran and colleagues, with an educational shawn from Dr[employer]. Review of Systems Const All systems reviewed & are unremarkable except as noted in HPI and below Reports no additional complaints Eyes Reports no additional complaints ENT Reports no additional complaints Card Reports no additional complaints Resp Reports no additional complaints GI Reports no additional complaints Reports no additional complaints Physical exam (Primary Care) Vital Signs: Last Vital Signs Pulse 66 06/28/23 09:50 BP 102/60 06/28/23 09:50 Pulse Ox 97 06/28/23 09:50 Oxygen Delivery Method Room Air 06/28/23 09:50 BMI result Body Mass Index 21.7 Tobacco/Smoking Status: Tobacco use Status Tobacco use date assessed 09/27/22 06/28/23 10:02 Patient Tobacco Use Status Never used Tobacco 06/28/23 10:02 e-Cigarette/Vaping Use Never Used 06/28/23 10:02 PHQ-9: PHQ-9 Score PHQ-9: Total score 0 06/28/23 12:28 Depression Screening Interpretation: Negative Thrive Assessment: Date of Thrive Assessment Date Thrive assessed 06/28/23 06/28/23 10:02 Currently or been in a relationship where the following occur: no concerns reported Const General: no acute distress and ill appearing HENMT Throat: Yes posterior oropharynx normal Resp Effort & Inspection: normal respiratory effort Auscultation: clear to auscultation bilaterally Cardio Rhythm: regular rhythm Heart sounds: S1 normal heart sound present and S2 normal heart sound present GI Inspection: Yes normal to inspection Palpation (GI): Soft to palpation Extrem General: Yes no clubbing, cyanosis or edema Assessment and Plan Assessment & Plan (1) A-fib: Comment: on Amiodarone and Warfarin, f/u [facility] cardiology Code(s): I48.91 - Unspecified atrial fibrillation Plan: Continue current medications and follow-up with the cardiology (2) CKD (chronic kidney disease), stage III: Code(s): N18.30 - Chronic kidney disease, stage 3 unspecified Plan: Avoid nephrotoxins and monitor renal function (3) Ischemic cardiomyopathy: Comment: s/p CABG 1994, s/p LVAD pump for end stage HF implantation 10/2014, f/u [facility] Code(s): I25.5 - Ischemic cardiomyopathy Plan: Continue current medications follow-up with Cardiology (4) Frequent falls: Code(s): R29.6 - Repeated falls Plan: Continue physical therapy patient was advised to increase walking as tolerated (5) Weight loss: Code(s): R63.4 - Abnormal weight loss Plan: Increasing protein and calorie intake discussed with the patient. He will ensure supplement Orders: Orders Comprehensive [place]. Panel Fast Today I25.5 - Ischemic cardiomyopathy, I48.91 - Unspecified atrial fibrillation, N18.30 - Chronic kidney disease, stage 3 unspecified Complete Blood Count Auto Diff Today I25.5 - Ischemic cardiomyopathy, I48.91 - Unspecified atrial fibrillation, N18.30 - Chronic kidney disease, stage 3 unspecified TSH reflex Free T4 Today I25.5 - Ischemic cardiomyopathy, I48.91 - Unspecified atrial fibrillation, N18.30 - Chronic kidney disease, stage 3 unspecified Vitamin B12 and Folate Today I25.5 - Ischemic cardiomyopathy, I48.91 - Unspecified atrial fibrillation, N18.30 - Chronic kidney disease, stage 3 unspec ified Coding Level of Care Code Est Pt Level 4 (24855) Diagnoses A-fib I48.91 CKD (chronic kidney disease), stage III N18.30 Ischemic cardiomyopathy I25.5 Frequent falls R29.6 Weight loss R63.4
[2023-06-28 09:50] VITALS: BP 102/60; PULSE 66; O2SAT 97; BMI 21.7
== END 2023-06-28 11:49 | disposition home or self-care (01) ==
PROVIDERS: PCP Internal Medicine; Visit Provider Internal Medicine
DX: I48.91 Unspecified atrial fibrillation (principal); N18.30 Chronic kidney disease, stage 3 unspecified; I25.5 Ischemic cardiomyopathy; R29.6 Repeated falls; R63.4 Abnormal weight loss
CPT/HCPCS: 99214

== ENCOUNTER 2023-06-28 10:40 | Outpatient (REF) | payer MEDICARE, SELFPAY ==
[2023-06-28 13:46] LABS: MANUAL DIFF FLAG NO
[2023-06-28 13:56] LABS: Basophils Absolute Auto 0.1 X10*3/uL (0.0-0.2); Basophils Percent Auto 1.3 % (0-2); Eosinophils Absolute Auto 0.2 X10*3/uL (0.0-0.4); Eosinophils Percent Auto 3.3 % (0-4); Hematocrit 50.7 % (42.0-52.0); Hemoglobin 16.1 g/dl (14.0-18.0); Imm Gran Abs Auto 0.02 X10*3/uL (0.00-0.03); Imm Gran Pct Auto 0.3 % (0.0-0.4); Lymphocytes Absolute Auto 1.3 X10*3/uL (1.2-4.9); Lymphocytes Percent Auto 20.7 % (20-40); Mean Corpuscular HGB Conc 31.8 g/dl (31.0-36.0); Mean Corpuscular Hemoglobin 29.6 pg (27.0-33.0); Mean Corpuscular Volume 93.2 fL (80.0-98.0); Mean Platelet Volume 11.2 fL (9.4-12.4); Monocytes Absolute Auto 0.7 X10*3/uL (0.1-1.2); Monocytes Percent Auto 10.7 % (2-11); Neutrophils Absolute Auto 3.9 x10*3/uL (2.0-8.3); Neutrophils Percent Auto 63.7 % (45-73); Platelet Count 144 X10*3/uL (160-400); Red Blood Count 5.44 X10*6/uL (4.60-5.80); Red Cell Distribution Width 16.5 % (11.0-16.0); White Blood Count 6.1 X10*3/uL (4.8-10.8)
[2023-06-28 14:11] LABS: Alanine Aminotransferase 17 U/L (0-40); Albumin Level 4.1 g/dL (3.5-5.0); Alkaline Phosphatase 229 U/L (39-117); Anion Gap 13 (12-20); Aspartate Amino Transferase 26 U/L (5-37); Bilirubin Total 1.7 mg/dL (0.0-1.0); Blood Urea Nitrogen 18 mg/dL (9-16); Calcium 9.9 mg/dL (8.4-10.2); Carbon Dioxide 25 mmol/L (22-29); Chloride 108 mmol/L (96-108); Estimated Glomerular Filt Rate > 60; Glucose Fasting 96 mg/dL (60-99); Potassium 3.8 mmol/L (3.3-5.1); Sodium 142 mmol/L (135-145)
[2023-06-28 14:31] LABS: TSH reflex Free T4 2.47 uIU/mL (0.32-4.0)
[2023-06-28 15:41] LABS: Folate 15.3 ng/mL (> or = 4.0); Vitamin B12 584 pg/mL (200-900)
== END 2023-06-28 10:41 | disposition home or self-care (01) ==
LOC: HO.HMGCLDS 10:40
PROVIDERS: PCP Internal Medicine; Visit Provider Internal Medicine
DX: I48.91 Unspecified atrial fibrillation (principal); N18.30 Chronic kidney disease, stage 3 unspecified; I25.5 Ischemic cardiomyopathy
CPT/HCPCS: 36415; 80053; 82607; 82746; 84443; 85025

== ENCOUNTER 2023-07-13 11:43 | Outpatient (REF) | payer MEDICARE, SELFPAY ==
[2023-07-13 13:39] LABS: INTERNATIONAL NORM RATIO 4.3 (0.9-1.1); Prothrombin Time 52.8 SEC (11.1-13.3)
== END 2023-07-13 11:44 | disposition home or self-care (01) ==
LOC: HO.HMGCLR 11:43
PROVIDERS: PCP Internal Medicine; Visit Provider Internal Medicine Hematology
DX: Z95.811 Presence of heart assist device (principal)
CPT/HCPCS: 36415; 85610

== ENCOUNTER 2023-07-17 10:44 | Outpatient (REF) | payer MEDICARE, SELFPAY ==
[2023-07-17 13:46] LABS: INTERNATIONAL NORM RATIO 2.5 (0.9-1.1)
[2023-07-17 13:51] LABS: Prothrombin Time 30.8 SEC (11.1-13.3)
== END 2023-07-17 10:45 | disposition home or self-care (01) ==
LOC: HO.HMGCLR 10:44
PROVIDERS: PCP Internal Medicine; Visit Provider Internal Medicine Hematology
DX: Z95.811 Presence of heart assist device (principal)
CPT/HCPCS: 36415; 85610

== ENCOUNTER 2023-08-28 14:20 | Outpatient (REF) | payer MEDICARE, SELFPAY ==
[2023-08-28 16:23] LABS: INTERNATIONAL NORM RATIO 2.9 (0.9-1.1); Prothrombin Time 35.9 SEC (11.1-13.3)
== END 2023-08-28 14:21 | disposition home or self-care (01) ==
LOC: HO.HMGCLR 14:20
PROVIDERS: PCP Internal Medicine; Visit Provider Internal Medicine Hematology
DX: Z95.811 Presence of heart assist device (principal)
CPT/HCPCS: 36415; 85610

== ENCOUNTER 2023-09-26 11:59 | Outpatient (REF) | payer MEDICARE, SELFPAY ==
[2023-09-26 13:45] LABS: INTERNATIONAL NORM RATIO 3.7 (0.9-1.1); Prothrombin Time 45.3 SEC (11.1-13.3)
== END 2023-09-26 12:00 | disposition home or self-care (01) ==
LOC: HO.HMGCLR 11:59
PROVIDERS: PCP Internal Medicine; Visit Provider Internal Medicine Hematology
DX: Z95.811 Presence of heart assist device (principal)
CPT/HCPCS: 36415; 85610

== ENCOUNTER 2023-10-06 11:40 | Outpatient (REF) | payer MEDICARE, SELFPAY ==
[2023-10-06 13:31] LABS: INTERNATIONAL NORM RATIO 2.5 (0.9-1.1); Prothrombin Time 30.5 SEC (11.1-13.3)
[2023-10-06 13:49] LABS: Anion Gap 15 (12-20); Blood Urea Nitrogen 25 mg/dL (9-16); Calcium 10.1 mg/dL (8.4-10.2); Carbon Dioxide 22 mmol/L (22-29); Chloride 107 mmol/L (96-108); Estimated Glomerular Filt Rate 57; Glucose Random 107 mg/dL (60-115); Potassium 5.1 mmol/L (3.3-5.1); Sodium 139 mmol/L (135-145)
== END 2023-10-06 11:41 | disposition home or self-care (01) ==
LOC: HO.HMGCLR 11:40
PROVIDERS: PCP Internal Medicine; Referring Provider Nurse Practitioner Family; Visit Provider Internal Medicine Hematology
DX: Z95.811 Presence of heart assist device (principal)
CPT/HCPCS: 36415; 80048; 85610

== ENCOUNTER 2023-10-09 10:48 | Outpatient (REF) | payer MEDICARE, SELFPAY ==
[2023-10-09 13:21] LABS: INTERNATIONAL NORM RATIO 2.3 (0.9-1.1); Prothrombin Time 28.2 SEC (11.1-13.3)
== END 2023-10-09 10:49 | disposition home or self-care (01) ==
LOC: HO.HMGCLR 10:48
PROVIDERS: PCP Internal Medicine; Visit Provider Internal Medicine Hematology
DX: Z95.811 Presence of heart assist device (principal)
CPT/HCPCS: 36415; 85610

== ENCOUNTER 2023-10-12 09:32 | Outpatient (REF) | payer MEDICARE, SELFPAY ==
[2023-10-12 13:15] LABS: Anion Gap 13 (12-20); Blood Urea Nitrogen 23 mg/dL (9-16); Calcium 9.9 mg/dL (8.4-10.2); Carbon Dioxide 24 mmol/L (22-29); Chloride 107 mmol/L (96-108); Estimated Glomerular Filt Rate > 60; Glucose Random 133 mg/dL (60-115); Potassium 3.8 mmol/L (3.3-5.1); Sodium 140 mmol/L (135-145)
[2023-10-12 13:20] LABS: INTERNATIONAL NORM RATIO 2.7 (0.9-1.1); Prothrombin Time 32.4 SEC (11.1-13.3)
[2023-10-12 13:39] LABS: Prostate Specific Antigen 4.15 ng/mL (<0.05-4.0)
== END 2023-10-12 09:33 | disposition home or self-care (01) ==
LOC: HO.HMGCLR 09:32
PROVIDERS: Nurse Practitioner Family; PCP Internal Medicine; Referring Provider Physician Assistant; Visit Provider Internal Medicine Hematology
DX: N42.39 Other dysplasia of prostate (principal); Z95.811 Presence of heart assist device; Z12.5 Encounter for screening for malignant neoplasm of prostate; V43 Car occupant injured in collision with car, pick-up truck or van
CPT/HCPCS: 36415; 80048; 84153; 85610

== ENCOUNTER 2023-10-19 10:49 | Outpatient (REF) | payer MEDICARE, SELFPAY ==
[2023-10-19 13:23] LABS: INTERNATIONAL NORM RATIO 3.8 (0.9-1.1); Prothrombin Time 45.9 SEC (11.1-13.3)
== END 2023-10-19 10:50 | disposition home or self-care (01) ==
LOC: HO.HMGCLR 10:49
PROVIDERS: PCP Internal Medicine; Visit Provider Internal Medicine Hematology
DX: Z95.811 Presence of heart assist device (principal)
CPT/HCPCS: 36415; 85610